=== PATIENT | female | born 1970 | race Two or more races ===

== ENCOUNTER 2020-01-17 13:44 | Outpatient (AMBR) | payer MEDICAID, SELFPAY ==
--- NOTE | 2020-01-17 14:34 | PT.OIERPT ---
PT OP Initial Eval Patient Information Visit Reasons: Left elbow pain Medical Diagnosis: Left Lateral Epicondylitis; Elbow Pain Treatment Dx #1: Left Hand Weakness Treatment Dx #2: Left Elbow Pain Start of Care: 01/17/20 Date of Onset: 6 months ago Initial Assessment Subjective Pt is a 49 y/o female c/o chronic left elbow pain (/10) started several months ago and is progressively getting worse. Pt's recent xray came back negative and no MRI yet. Pt has limitation with gripping, lifting, chores, self care, cooking, cleaning, work duties, and performing normal ADLs. Objective Left Elbow AROM: all motions are WFL Left Elbow MMTs Flexors: 3+/5 Extensors: 3+/5 Left Wrist AROM: all motions are WFL with end range pain in extension and flexion Left Wrist MMTs: grossly 3+/5 Stripper [place] Strength L: 10 lbs R: 58 lbs Palpation: TTP extensor complex tendon Special Test (+) Michel (+) Cozen's test Assessment Pt demonstrate left lateral elbow pain consistent with epicondylitis leading to weakness and decline function. 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 Handler Goals 1) Increase wrist AROM WNL in 6 wks to be able to perform self care activities 2) Increase left vice president global advertising sales strength to 50 lbs in 6 wks to be able to perform gripping activities 3) Decrease elbow pain to 2/10 in 6 wks to be able to perform chores 4) Increase wrist MMTs grossly to 4-/5 in 6 wks to be able to perform recreational activities 5) Indep with HEP Treatment Plan 1) Manual Therapy 2) Therapeutic Activities 3) Therapeutic Exercises 4) Modalities (ice, heat) Frequency and Duration 2 x wk for 6 wks Certification Dates: 01/17/20 to 04/18/20 Office Procedures PT Procedures PT Date of Service: 01/17/20 OP PT Eval Mod Complex 30 minutes: Yes
--- NOTE | 2020-01-20 10:20 | PTNOTE_ITS ---
PT Outpatient Daily Note Date of Service: 01/20/20 OP Daily Note Visit Reasons: Left elbow pain Outpatient Physical Therapy Treatment Date: 01/20/20 Subjective: Pt mention that her elbow the same. Pt was unable to use of TV remote yesterday and gripping activities still difficult Objective: Please see flow chart for list of ther ex performed Assessment: difficulty with digiflex due to pain; Pt demonstrate fatigue at the end of PT session Plan: Continue with PT Length of Time (minutes) of Treatment: 30 Minutes Office Procedures PT Procedures PT Date of Service: 01/17/20 OP PT Eval Mod Complex 30 minutes: Yes PT Procedures PT Date of Service: 01/20/20 Therapeutic Exercise 15 minutes: Yes Manual Fireboat Operator 15 minutes: Yes
--- NOTE | 2020-01-25 13:41 | PT.ODAYNRPT ---
PT Outpatient Daily Note Date of Service: 01/25/20 OP Daily Note Visit Reasons: Left elbow pain Outpatient Physical Therapy Treatment Date: 01/25/20 Subjective: Pt's wrist feels good today. Pt still has limitation with gripping activities Objective: Please see flow chart for list of ther ex performed Assessment: tolerate exercises with minimal pain; still exhibit difficulty with clips and digiflex due to extensor musculature irritation with gripping motions Plan: Continue with PT Length of Time (minutes) of Treatment: 30 Minutes Office Procedures PT Procedures PT Date of Service: 01/17/20 OP PT Eval Mod Complex 30 minutes: Yes PT Procedures PT Date of Service: 01/25/20 Therapeutic Exercise 15 minutes: Yes Manual Freight Car Cleaner 15 minutes: Yes PT Procedures PT Date of Service: 01/20/20 Therapeutic Exercise 15 minutes: Yes Manual Freight Car Cleaner 15 minutes: Yes
--- NOTE | 2020-01-27 11:10 | PTNOTE_ITS ---
PT Outpatient Daily Note Date of Service: 01/27/20 OP Daily Note Visit Reasons: Left elbow pain Outpatient Physical Therapy Treatment Date: 01/27/20 Subjective: Pt's elbow is sore but lately has been stress due to left jaw pain. Pt mention that she has a stat CT scan of her jaw and brain after therapy session. Pt still notice her right cheek still numb. Pt continues to have limitation with gripping activities due to pain Objective: Please see flow chart for list of ther ex performed Assessment: modifed exercise program today to do less resistance and exercises in general to rest sore elbow. Pt's able to perform flexbar with more force today. Plan: Continue with PT Length of Time (minutes) of Treatment: 30 Minutes Office Procedures PT Procedures PT Date of Service: 01/17/20 OP PT Rachel Hinojosa Complex 30 minutes: Yes PT Procedures PT Date of Service: 01/25/20 Therapeutic Exercise 15 minutes: Yes Manual Human Resources Manager Manufacturing 15 minutes: Yes PT Procedures PT Date of Service: 01/27/20 Therapeutic Exercise 15 minutes: Yes Manual Human Resources Manager Manufacturing 15 minutes: Yes PT Procedures PT Date of Service: 01/20/20 Therapeutic Exercise 15 minutes: Yes Manual Human Resources Manager Manufacturing 15 minutes: Yes
--- NOTE | 2020-01-30 13:23 | PT.ODAYNRPT ---
PT Outpatient Daily Note Date of Service: 01/30/2020 OP Daily Note Visit Reasons: Left elbow pain Outpatient Physical Therapy Treatment Date: 01/30/20 Subjective: pt states her elbow is sore from last visit. Objective: see flow sheet. Assessment: pt has a lot of muscle fatigue when using the 1# weight and needs to rest arm in between reps. palpated muscles tenderness during STM and she was sensitive at first then was able to relax and tolerate treatment. the thera bar exercise is good for pt although she fatigues she is able to complete the exercise after resting. she still weak as observed during strengthening exercises. Plan: continue POC per PT. Length of Time (minutes) of Treatment: 30 Minutes Office Procedures PT Procedures PT Date of Service: 01/17/20 OP PT Eval Mod Complex 30 minutes: Yes PT Procedures PT Date of Service: 01/25/20 Therapeutic Exercise 15 minutes: Yes Manual Paper Cone Drying Machine Operator 15 minutes: Yes PT Procedures PT Date of Service: 01/27/20 Therapeutic Exercise 15 minutes: Yes Manual Paper Cone Drying Machine Operator 15 minutes: Yes PT Procedures PT Date of Service: 01/30/20 Therapeutic Exercise 15 minutes: Yes Manual Paper Cone Drying Machine Operator 15 minutes: Yes PT Procedures PT Date of Service: 01/20/20 Therapeutic Exercise 15 minutes: Yes Manual Paper Cone Drying Machine Operator 15 minutes: Yes
== END 2020-01-29 23:59 | disposition home or self-care (01) ==
PROVIDERS: PCP Family Medicine; Referring Provider Family Medicine; Visit Provider Nurse Practitioner Family
DX: R53.1 Weakness (principal); M25.522 Pain in left elbow; G89.29 Other chronic pain; M77.12 Lateral epicondylitis, left elbow
CPT/HCPCS: 97110; 97140; 97162

== ENCOUNTER 2021-08-28 15:54 | Outpatient (AMBR) | payer MEDICAID, SELFPAY ==
--- NOTE | 2021-08-22 11:05 | PT.OIERPT ---
PT OP Initial Eval Patient Information Visit Reasons: left knee Medical Diagnosis: M25.562 Treatment Dx #1: Left Knee Mobility Deficits Treatment Dx #2: Left Knee Weakness Start of Care: 08/22/21 Date of Onset: 07/16/21 Initial Assessment Subjective Pt is a 51 y/o female s/p left knee lateral release and MMR 07/16/21 due to meniscal tear and OA. Pt still has knee pain (7/10) with activities. Pt has limitation with chores, self care, cooking, walking, taking care of her grandchildren, standing, squatting, stairs, and performing recreational activities. Objective Left Knee AROM: - 9 deg to 115 deg Left Knee MMTs Quads: 3-/5 Hs: 3-/5 Left Hip MMTs Glute Med: 3/5 Glute Max: 3/5 Knee Cap Mobility: decrease in all plane SLS: unable Muscle Length: decrease Hs length Assessment Pt demonstrate left knee mobility and strength deficits s/p knee surgery leading to decline function. Pt will benefit from physical therapy to increase strength, ROM, and work on knee stability. Short Term and Penitentiary Goals 1) Increase left knee AROM WFL in 8 wks to be able to perform squatting activities 2) Increase left knee MMTs grossly to 4/5 in 8 wks to be able to perform recreational activities 3) Increase left hip MMTs grossly to 4-/5 in 8 wks to be able to perform ambulation more than 2 hr 4) Decrease knee pain to 2/10 in 8 wks to be able to take care of her grandchildren 5) Increase SLS to 15 sec in 8 wks to be able to perform self care activities 6) Indep with HEP Treatment Plan 1) Manual Therapy 2) Therapeutic Activities 3) Therapeutic Exercises 4) Modalities (ice, heat) 5) Balance Training 6) Gait Training Frequency and Duration 2 x wk for 6 wks Certification Dates: 08/22/21 to 11/20/21 Office Procedures PT Treatments PT Date of Service: 08/22/21 OP PT Eval Mod Complex 30 minutes: Yes
--- NOTE | 2021-08-26 15:52 | PT.ODAYNRPT ---
PT Outpatient Daily Note Date of Service: 08/26/21 OP Daily Note Visit Reasons: left knee Outpatient Physical Therapy Treatment Date: 08/26/21 Subjective: Pt mention that her knee still hurts and pop. Pt can move her knee with less pain lately. Objective: Please see flow chart for list of ther ex performed Assessment: tolerate exercises with minimal pain Plan: Continue with PT Length of Time (minutes) of Treatment: 30 Minutes Office Procedures PT Treatments PT Date of Service: 08/22/21 OP PT Eval Mod Complex 30 minutes: Yes PT Treatments PT Date of Service: 08/26/21 Therapeutic Exercise 30 minutes: Yes
--- NOTE | 2021-08-28 16:14 | PT.ODAYNRPT ---
PT Outpatient Daily Note Date of Service: 08/28/21 OP Daily Note Visit Reasons: left knee Outpatient Physical Therapy Treatment Date: 08/28/21 Subjective: Pt mention that her knee still hurts but the movement is getting much better. Pt continues to perform her exercises daily. Objective: Please see flow chart for list of ther ex performed Assessment: worked on gait training today and patient was able to demonstrate proper gait with decrease left knee bent during stance. Pt's Hs is very tight due to knee position during ambulation. improved Hs length was noted after passsive stretching Plan: Continue with PT Length of Time (minutes) of Treatment: 30 Minutes Office Procedures PT Treatments PT Date of Service: 08/22/21 OP PT Eval Mod Complex 30 minutes: Yes PT Treatments PT Date of Service: 08/26/21 Therapeutic Exercise 30 minutes: Yes PT Treatments PT Date of Service: 08/28/21 Therapeutic Exercise 30 minutes: Yes
== END 2021-08-30 23:59 | disposition home or self-care (01) ==
PROVIDERS: PCP Orthopaedic Surgery; Referring Provider Orthopaedic Surgery; Visit Provider Orthopaedic Surgery
DX: Z98.890 Other specified postprocedural states (principal); M25.562 Pain in left knee; R53.1 Weakness; R26.2 Difficulty in walking, not elsewhere classified
CPT/HCPCS: 97110; 97162

== ENCOUNTER 2024-07-27 10:47 | Outpatient (RCR) | payer MEDICAID, SELFPAY ==
--- NOTE | 2024-07-27 11:19 | PT.OIERPT ---
PT OP Initial Eval Patient Information Outpatient Physical Therapy Treatment Date: 07/27/24 Visit Reasons: left shoulder surgery Medical Diagnosis: M75.22; [id number] Treatment Dx #1: Left Shoulder Mobility Deficits Treatment Dx #2: Left Shoulder Pain Start of Care: 07/27/24 Date of Onset: 07/22/24 Smoking Status Smoking Status: Never smoker Initial Assessment Subjective: Pt is a 54 y/o female s/p left shoulder bicep tenodesis and labrum debridement 07/22/24. Pt still has a lot of pain (8/10) with all activities. Pt has limitation with lifting, chores, self care, cooking, cleaning, and performing recreational activities. Objective: Left Shoulder PROM Flexion: 90 deg Abduction: 50 deg ER and IR: unable Left Shoulder AROM Flexion: 45 deg Abduction: 20 deg ER and IR: unable Left Shoulder MMTs grossly 2-/5 Left Scapula MMTs: grossly 2-/5 Assessment: Pt demonstrate left shoulder mobility and strength deficits s/p shoulder surgery leading to difficulty with ADLs. Pt will benefit from physical therapy to increase ROM, strength, and work on stability. Short Term and Electrical Tech/Project Manager Goals 1) Increase left shoulder PROM WNL in 12 wks to prevent frozen shoulder 2) Increase left shoulder AROM WFL in 12 wks to be able to perform overhead motions 3) Increase left shoulder MMTs grossly to 4-/5 in 12 wks to be able to perform recreational activities 4) Increase left scapula MMTs grossly to 3+/5 in 12 wks to be able to perform self care activities 5) Indep with HEP Treatment Plan 1) Manual Therapy 2) Therapeutic Activities 3) Therapeutic Exercises 4) Modalities (ice, heat) Frequency and Duration: 2 x wk for 12 wks Certification Dates: 07/27/24 to 10/27/24 Procedure Charges OP PT Eval Mod Complex 30 minutes: Yes
== END 2024-07-30 23:59 | disposition home or self-care (01) ==
LOC: CPTX 10:47
PROVIDERS: PCP Orthopaedic Surgery; Referring Provider Orthopaedic Surgery; Visit Provider Orthopaedic Surgery
DX: M25.512 Pain in left shoulder (principal); M75.22 Bicipital tendinitis, left shoulder; S43.432D Superior glenoid labrum lesion of left shoulder, subsequent encounter; X58.XXXD Exposure to other specified factors, subsequent encounter
CPT/HCPCS: 97162

== ENCOUNTER 2024-08-23 16:00 | Emergency (ER) | payer MEDICAID, SELFPAY ==
[2024-08-23 16:09] VITALS: BP 115/77; PULSE 98; RESP 18; TEMP 36.6; O2SAT 98; BMI 24.4
--- NOTE | 2024-08-23 16:14 | XR_ITS ---
Examination: CT cervical spine without contrast 2-D sagittal reconstructions 2-D coronal reconstructions 3-D reconstructions. Exam date and time:August 23, 2024 1743 hrs. Indications: Patient fell today with injury to the neck, neck pain CTDI:vol (mGy) 12.7 DLP: (mGycm) 306 Technique: Multiple 2 mm axial sections of the cervical spine have been obtained. The coronal and sagittal reconstructions have been obtained. 3-D reconstructions have been obtained. Low dose protocols were performed. One or more of the following dose reduction techniques were used; automated exposure control, adjustment of the mA and/or KV according to patient size, use of iterative reconstruction technique. Findings: Axial sections demonstrate intact base of the skull. C1 exhibit satisfactory relationship to the odontoid. No acute cervical vertebral body fracture seen. Alignment posterior spinous processes satisfactory. Impression: No acute cervical fracture.
--- NOTE | 2024-08-23 16:14 | XR_ITS ---
Examination: Tibia-Fibula, left , 2 views Technique: Tibia-fibula AP lateral 2 views Date and time of exam: August 23, 2024 1629 hrs. Indications: Patient fell today with injury to lower leg, lower leg pain. Findings: No acute fracture No dislocation Impression: No acute fracture
--- NOTE | 2024-08-23 16:14 | XR_ITS ---
Examination: CT brain head without contrast. 2-D sagittal coronal reconstructions Date and time of exam:August 23, 2024 1743 hrs. CTDI: vol (mGy):50.1 DLP: (mGycm):948 Technique: Multiple CT axial sections of the brain have been obtained, 5 mm slice thickness. Contrast has not been administered. 2-D sagittal, coronal reconstructions have been obtained Low dose protocols were performed. One or more of the following dose reduction techniques were used; automated exposure control, adjustment of the mA and/or KV according to patient size, use of iterative reconstruction technique. Findings: No significant ventricular enlargement. Soft tissue swelling left forehead Intra-axial or extra-axial hemorrhage density is not seen. No mass effect or midline shift Basal cisterns are not remarkable. Fourth ventricle is midline. Cranial vault intact. Impression: Negative for acute hemorrhage, mass effect or midline shift
--- NOTE | 2024-08-23 16:14 | XR_ITS ---
Examination: CT maxillofacial, without intravenous contrast. 2-D sagittal reconstructions. 3-D reconstructions. Date and time of exam:August 23, 2024 1743 hrs. Indications: Patient fell today with injury to the face, facial pain CTDI: vol (mGy):14.2 DLP: (mGycm):246 Technique: Multiple axial images of maxillofacial region, 3.0 mm slice thickness. 2-D sagittal and coronal reconstructions. 3-D reconstructions. Low dose protocols were performed. One or more of the following dose reduction techniques were used; automated exposure control, adjustment of the mA and/or KV according to patient size, use of iterative reconstruction technique. Findings: Frontal bone frontal sinuses intact Orbital rims intact No nasal bone fracture No depression zygomatic arches Pterygoid plates maxilla and the mandible intact Impression: No acute facial fracture.
--- NOTE | 2024-08-23 16:14 | XR_ITS ---
Examination: Shoulder,left, 3 views Technique: Shoulder AP internal rotation, AP external rotation, Y view shoulder, 3 views Exam date and time :August 23, 2024 1629 hrs. Indications: Patient fell today with injury to the shoulder, shoulder pain Findings: No shoulder fracture or dislocation Mild calcific tendinitis Impression: No shoulder fracture or dislocation
--- NOTE | 2024-08-23 16:15 | PD.EDRME ---
Rapid Medical Screening Exam RME Arrival date/time: 08/23/24 16:00 54-year-old female presents emergency department today stating she had a fall today patient reports that she had a recent surgery on her left shoulder 1 month ago patient reports that she was unable to fall with an outstretched arm and instead fell on her face patient reports facial pain, headache, neck pain, leg pain and shoulder pain Chief Complaint: Fall Vital signs: Vital Signs Temperature 98 F 08/23/24 16:09 Pulse Rate 98 08/23/24 16:09 Respiratory Rate 18 08/23/24 16:09 Blood Pressure 115/77 08/23/24 16:09 Pulse Oximetry (%) 98 08/23/24 16:09 Oxygen Delivery Method Room Air 08/23/24 16:09
[2024-08-23] MEDS: traMADol HCL 50 MG TABLET PO (16:22)
--- NOTE | 2024-08-23 16:45 | PC.NURSE ---
PT HERE WITH C/O TRIPPING OVER THE OVEN DOOR SHE LEFT OPEN. STATES LANDED ON FACE AND I'M NOT SURE IF I PASSED OUT. C/O PAIN TO FACE , NECK, AND BILATERAL SHINS. PT WITH SLING IN PLACE TO LEFT ARM DUE TO SHOULDER SURGERY 4 WEEKS AGO
--- NOTE | 2024-08-23 17:00 | EDNOTE_ITS ---
ED General RME/HPI General Chief complaint: Fall Stated complaint: TRIP/FALL, PAIN EVERYWHERE Time Seen by Provider: 08/23/24 16:51 Arrival date/time: 08/23/24 16:00 CC: Facial pain neck pain HPI patient fell after tripping on an open oven door. The patient has mildly altered balance secondary to a 4-week old surgery to the left shoulder for tendon repair Patient thinks that she had loss of consciousness. The patient states she left the oven door open forgot about it went about her business and wind up tripping over the oven door. RME / HPI RME / HPI narrative: 08/23/24 16:00 54-year-old female presents emergency department today stating she had a fall today patient reports that she had a recent surgery on her left shoulder 1 month ago patient reports that she was unable to fall with an outstretched arm and instead fell on her face patient reports facial pain, headache, neck pain, leg pain and shoulder pain Related Data Previous Rx's ?Medication ?Instructions ?Recorded acetaminophen 650 mg 650 mg PO Q8H PRN fever or pain 11/13/18 tablet,extended release #30 tabs cyclobenzaprine 10 mg tablet 10 mg PO Q8H PRN muscle spasm / 11/13/18 pain #14 tabs meloxicam 15 mg tablet (Mobic) 15 mg PO QDAY #10 tabs 11/13/18 dicyclomine 20 mg tablet 20 mg PO BID #14 tabs 04/01/22 meloxicam 7.5 mg tablet 7.5 mg PO QDAY #14 tabs 04/01/22 nitrofurantoin 100 mg PO BID #14 caps 04/01/22 monohydrate/macrocrystals 100 mg capsule (Macrobid) diphenhydramine HCl 25 mg capsule 25 mg PO TID PRN allergic reaction 06/04/24 (Allergy (diphenhydramine)) #10 caps prednisone 50 mg tablet 50 mg PO QDAY #3 tabs 06/04/24 ondansetron 4 mg disintegrating 4 mg PO Q8H #10 tabs 08/23/24 tablet Allergies Allergy/AdvReac Type Severity Reaction Status Date / Time ciprofloxacin Allergy Severe Nausea/Vomi Verified 08/23/24 16:01 tiing codeine Allergy Severe SEVERE Verified 08/23/24 16:01 HEADACHE Review of Systems Review of Systems Narrative Review of Systems: GEN: No fever, no chills, no weight loss EYES: No discharge, no visual changes, no pain HEENT: No ear pain, no congestion, no sore throat, +neck pain PULM: No shortness of breath, no cough, no congestion CV: No chest pain, no dyspnea on exertion, no palpitations GI: No nausea, no vomiting, no diarrhea, no pain, no constipation : No frequency, no urgency, no dysuria MUSC/SKEL: + joint pain, no back pain SKIN: No rash PSYCH: No hallucinations, no depression HEME/LYMPH: No easy bleeding or bruising tendencies NEURO: No weakness, no headache Past Medical History Past Medical History NEUROLOGIC: Positive Neurological Disorders and Migraine; Negative Seizures CARDIAC: Positive Cardiac Disorders, Cardiac Arrhythmia and Hypercholesterolemia; Negative Congestive Heart Failure RESPIRATORY: Negative Chronic Obstructive Pulmonary Disease (COPD) or Asthma GASTROINTESTINAL: Negative Gastrointestinal Disorders or Hepatitis GENITOURINARY: Negative Genitourinary Disorders or Renal Disease REPRODUCTIVE: Positive Previous Pregnancies; Negative Pelvic Inflammatory Disease MUSCULOSKELETAL: Positive Musculoskeletal Disorders, Arthritis, Rheumatoid Arthritis, Osteoporosis and Fibromyalgia ENDOCRINE: Negative Endocrine Disorders, Diabetes Mellitus Type 1 or Diabetes Mellitus Type 2 HEMATOLOGIC: Negative Blood Disorders or Sickle Cell Disease PSYCHO/SOCIAL: Positive Depression OTHER HISTORY: Negative Blood Transfusions, Blood Transfusion Reaction, Anesthesia Reactions, MRSA, VRSA, Vancomycin-Resistant Enterococci, Clostridium Difficile or Cancer Family History FAMILY HISTORY: Positive Family Cardiac Disorders and Family Cancer Surgical History SURGICAL: Positive of Shoulder Sx (LEFT) and Hysterectomy Social History SMOKING STATUS: Never smoker ED Exam Narrative Physical exam: [General: In mild discomfort but not in any acute distress Head normocephalic no step-offs hematomas induration ulceration crepitus no depressions. HEENT: Center forehead the patient has a mild hematoma, there is tender to palpation. Nose has a minor abrasion with a minor hematoma to the bridge of the nose. Mouth: [place] moist membranes uvula is midline symmetric swallow symmetrical phonation is normal no step-offs in the upper or lower mandibles no pops or clicks with palpation of the TMJ with mastication. Nose no rhinorrhea no otorrhea. Ears EACs clear TMs visible no bleeding. No raccoon's eyes or Angela sign. Neck is supple mild the cervical paraspinal tenderness on palpation. Chest equal chest rise nontender to palpation Respiratory: Clear to auscultation no wheezes crackles or rubs CV: Rate rhythm is regular no murmurs rubs or clicks Abdomen is soft nontender no masses positive bowel sounds all 4 quadrants Back: No CVA tenderness no spinous process tenderness from cervical spine thoracic and lumbar spine Skin: Minor abrasions listed above otherwise skin is intact no petechiae rash induration ulceration or crepitus Extremities: Decreased range of motion of the left arm secondary to pain in the left shoulder status post surgery. Cap refill in the left upper extremity less than 2 seconds neurosensory intact. Full range of motion of the wrist elbow and digits. Moving all other extremities against resistance cap refill less than 2 seconds neurosensory intact Neuro: Awake alert oriented x3 Glascow coma 15 no focal deficits] Course Quality Measures none Orders Category Date Time Status CT cervical spine wo con Stat Exams 08/23/24 16:[address] facial bones wo con Stat Exams 08/23/24 16:[address] head/brain wo con Stat Exams 08/23/24 16:14 Completed XR shoulder LT min 2V Stat Exams 08/23/24 16:14 Completed XR tibia fibula LT 2V Stat Exams 08/23/24 16:14 Completed traMADol HCL [Ultram] Med 08/23/24 16:17 Discontinued 50 mg PO X1 ONE Vital Signs Vital signs: Vital Signs Temperature 98 F 08/23/24 16:09 Pulse Rate 98 08/23/24 16:09 Respiratory Rate 18 08/23/24 16:09 Blood Pressure 115/77 08/23/24 16:09 Pulse Oximetry (%) 98 08/23/24 16:09 Oxygen Delivery Method Room Air 08/23/24 16:09 [facility] Patient data External records reviewed:: [facility] previous records Clinical information provided by:: patient Social determinants that could affect healthcare access:: none Patient has the following chronic illnesses:: None How is presenting disease/condition affected by chronic disease/condition?: uneffected by Evaluation data The following diagnostics were reviewed and interpreted by me:: radiology exam(s) Lab and/or radiology exams considered but not ordered:: CT head C-spine and face are negative for any acute fracture malalignment or dislocation as interpreted by me read by radiology left shoulder x-rays inter by me read by radiology as negative for any acute fracture or malalignment Tib-fib x-ray is inter by me read by radiology as negative Interpretation Summary: Patient has had no deterioration neurologic status throughout her visit, reassessment of the patient at 1830 show the patient still continues have mild face pain. Patient was offered pain medicine declined saying she has pain medicines at home we will discharge the patient home with antinausea medicine. Patient is to follow-up with her orthopedic surgeon who did the work on her shoulder for reevaluation and possible consideration of another MRI. Medications Medications considered but not ordered:: None Medication administrations:: Medication Administration History Discontinued Medications Tramadol HCl (Tramadol Hcl 50 Mg Tablet) 50 mg PO X1 ONE Stop: 08/23/24 16:18 Last Admin: 08/23/24 16:22 Dose: 50 mg Documented By: None Consultations Consultation(s) initiated? (list below): No Diagnosis Differential Diagnosis ED Complaint MDM: Closed head injury neck fracture facial fracture Most likely diagnosis given after review of the tests above:: Fall forehead contusion face contusion Admission Indicated Admission indicated?: not indicated Explain why admission is indicated or not indicated:: Stable for outpatient follow-up Admission Request Was there a request for admission?: No Disposition Plan Disposition Plan: Discharge Discharge Attestation Discharge Attestation: The patient and all family members were given an opportunity to ask questions and understood the discharge instructions. Discharge instructions specifically effects, indications for sooner follow up or return to the emergency department, and the expected course of current diagnosis. Patient condition: Stable Medical Decision Making Differential Diagnosis Differential Diagnosis: Closed head injury neck fracture facial fracture Discharge Plan Plan Patient Disposition: HOME (Self Care) Patient condition on transfer: Stable Prescriptions/Referrals Prescriptions/Med Rec: New ondansetron 4 mg tablet,disintegrating 4 mg PO Q8H Qty: 10 0RF No Action acetaminophen 650 mg tablet extended release 650 mg PO Q8H PRN (Reason: fever or pain) Qty: 30 0RF Rx Instructions: swallow whole; do not crush, chew, break, dissolve, cut, or open cyclobenzaprine 10 mg tablet 10 mg PO Q8H PRN (Reason: muscle spasm / pain) Qty: 14 0RF meloxicam [Mobic] 15 mg tablet 15 mg PO QDAY Qty: 10 0RF dicyclomine 20 mg tablet 20 mg PO BID Qty: 14 0RF nitrofurantoin monohyd/m-cryst [Macrobid] 100 mg capsule 100 mg PO BID Qty: 14 0RF Rx Instructions: must administer with a meal/food meloxicam 7.5 mg tablet 7.5 mg PO QDAY Qty: 14 0RF prednisone 50 mg tablet 50 mg PO QDAY Qty: 3 0RF diphenhydramine HCl [Allergy (diphenhydramine)] 25 mg capsule 25 mg PO TID PRN (Reason: allergic reaction) Qty: 10 0RF Referrals: Nilam Balderrama FNP [Primary Care Provider] - In 1 week Problem List Clinical Impression: Contusion of face, Contusion of left shoulder Patient/Caregiver Discharge Instructions Education Materials: ED CONTUSION Face [w/ Wake Up], ED Shoulder Contusion Print Language: Tuvaluan Stand Alone Forms: Liz Award Info., Patient Portal Info Letter, Work/School Release PA/WEB DEVELOPER Supervising Physician PA/WEB DEVELOPER Supervising Physician: Smith Gupta ENP
[2024-08-23 18:00] VITALS: BP 117/71; PULSE 76; RESP 16; O2SAT 97
[2024-08-23 18:46] VITALS: TEMP 36.4
== END 2024-08-23 18:45 | disposition home or self-care (01) ==
PROVIDERS: Emergency Provider Emergency Medicine; PCP Registered Nurse Community Health
DX: S00.83XA Contusion of other part of head, initial encounter (principal); S00.31XA Abrasion of nose, initial encounter; S00.33XA Contusion of nose, initial encounter; S40.012A Contusion of left shoulder, initial encounter; S19.9XXA Unspecified injury of neck, initial encounter; S89.92XA Unspecified injury of left lower leg, initial encounter; W01.0XXA Fall on same level from slipping, tripping and stumbling without subsequent striking against object, initial encounter
CPT/HCPCS: 70450; 70486; 72125; 73030; 73590; 99284; A9270

== ENCOUNTER 2024-08-30 14:30 | Outpatient (RCR) | payer MEDICAID, SELFPAY ==
--- NOTE | 2024-08-02 14:56 | PT.ODAYNRPT ---
PT Outpatient Daily Note OP Daily Note Outpatient Physical Therapy Treatment Date: 08/02/24 Visit Reasons: Left shoulder surgery Subjective: Pt's shoulder feels better. Pt has been able to do bigger pendulums at home with less pain. Objective: Please see flow chart for list of ther ex performed Assessment: attempted isometric exercises but unable due to pain. Exercise was stopped and will re-attempt when patient can tolerate. Pt cue to decrease guarding with PROM to increase ROM. Post ice helped with pain Plan: Continue with PT Length of Time (minutes) of Treatment: 30 Minutes Procedure Charges Therapeutic Exercise 30 minutes: Yes
--- NOTE | 2024-08-05 14:28 | PT.ODAYNRPT ---
PT Outpatient Daily Note OP Daily Note Outpatient Physical Therapy Treatment Date: 08/05/24 Visit Reasons: Left shoulder surgery Subjective: Pt's shoulder feels better and notice she can move a little more. Pt has been using ice which help with pain and soreness. Objective: Please see flow chart for list of ther ex performed Assessment: progressing with shoulder PROM in all plane. Post ice helped with pain and soreness Plan: Continue with PT Length of Time (minutes) of Treatment: 30 Minutes Procedure Charges Therapeutic Exercise 30 minutes: Yes
--- NOTE | 2024-08-09 13:39 | PT.ODAYNRPT ---
PT Outpatient Daily Note OP Daily Note Outpatient Physical Therapy Treatment Date: 08/09/24 Visit Reasons: Left shoulder surgery Subjective: Pt's shoulder is feeling better each week. Pt has a follow up appt with surgeon today. Objective: Left Shoulder PROM Flexion: 120 deg ABduction: 100 deg Assessment: Pt progressing with shoulder PROM less cues today to relax with PROM exercises. Post ice helped with pain and soreness Plan: Continue with PT Length of Time (minutes) of Treatment: 30 Minutes Procedure Charges Therapeutic Exercise 30 minutes: Yes
--- NOTE | 2024-08-12 15:36 | PT.ODAYNRPT ---
PT Outpatient Daily Note OP Daily Note Outpatient Physical Therapy Treatment Date: 08/12/24 Visit Reasons: Left shoulder surgery Subjective: Pt's shoulder feels better. Pt seen surgeon and wants her to take it easy with minimal lifting at home or in PT for a few more weeks. Objective: Please see flow chart for list of ther ex performed Assessment: continues to progress with shoulder flexion AAROM with alejandra and finger ladder with less pain reported. Plan: Continue with PT Length of Time (minutes) of Treatment: 30 Minutes Procedure Charges Therapeutic Exercise 30 minutes: Yes
--- NOTE | 2024-08-15 14:30 | PT.ODAYNRPT ---
PT Outpatient Daily Note OP Daily Note Outpatient Physical Therapy Treatment Date: 08/15/24 Visit Reasons: Left shoulder surgery Subjective: Pt's shoulder feels better. Pt notice some soreness lately. Objective: Please see flow chart for list of ther ex performed Assessment: progressing with shoulder flexion and scaption AAROM with less pain reported Plan: Continue with PT Length of Time (minutes) of Treatment: 30 Minutes Procedure Charges Therapeutic Exercise 30 minutes: Yes
--- NOTE | 2024-08-22 14:48 | PT.ODAYNRPT ---
PT Outpatient Daily Note OP Daily Note Outpatient Physical Therapy Treatment Date: 08/22/24 Visit Reasons: Left shoulder surgery Subjective: Pt's shoulder is okay and feel stiff today. Pt mention her whole body feels inflamed causing her shoulder to hurt more Objective: Please see flow chart for list of ther ex performed Assessment: backed off isometric exercises due to increase pain prior to therapy session. Pt performed all AAROM with tolerable pain Plan: Continue with PT Length of Time (minutes) of Treatment: 30 Minutes Procedure Charges Therapeutic Exercise 30 minutes: Yes
--- NOTE | 2024-08-30 15:26 | PTNOTE_ITS ---
PT Outpatient Daily Note OP Daily Note Outpatient Physical Therapy Treatment Date: 08/30/24 Visit Reasons: Left shoulder surgery Assessment: Pt came into therapy session, however, not treated. Pt reported she fell 08/23/25 and hurt the left shoulder. Pt mentioned she recently seen her surgeon and she needs immediate surgery to reconnect the bicep tendon, however, unable to perform surgery at the [facility] due to clinic not accepting patient's current insurance. Pt has a pending appt with her PCP and will like to be refer to a specialist ASHLEY. Pt's treatment is on hold until further notice/clearance from surgeon.
== END 2024-08-30 23:59 | disposition home or self-care (01) ==
LOC: CPTX 14:30
PROVIDERS: PCP Orthopaedic Surgery; Referring Provider Orthopaedic Surgery; Visit Provider Orthopaedic Surgery
DX: M25.512 Pain in left shoulder (principal); M75.22 Bicipital tendinitis, left shoulder; S43.432D Superior glenoid labrum lesion of left shoulder, subsequent encounter; X58.XXXD Exposure to other specified factors, subsequent encounter
CPT/HCPCS: 97110

== ENCOUNTER 2024-09-29 11:00 | Outpatient (RCR) | payer MEDICAID, SELFPAY ==
--- NOTE | 2024-09-20 14:59 | PT.ODAYNRPT ---
PT Outpatient Daily Note OP Daily Note Outpatient Physical Therapy Treatment Date: 09/20/24 Visit Reasons: LEFT SHOULDER PAIN Subjective: Pt reports L shoulder is stiff and painful. Pt had a fall on August 23 2024 she had a head contusion and tore her bicep. As of now there is no plan for surgery on L bicep, surgeon recommended pt continue with PT for shoulder to prevent frozen shoulder. Objective: Please see flow sheet for ther ex list. Assessment: Pt performed light AAROM, performed PROM to L shoulder within pt tolerance. Plan: Continue with POC. Length of Time (minutes) of Treatment: 30 Minutes Procedure Charges Therapeutic Exercise 30 minutes: Yes
--- NOTE | 2024-09-22 14:21 | PT.ODAYNRPT ---
PT Outpatient Daily Note OP Daily Note Outpatient Physical Therapy Treatment Date: 09/22/24 Visit Reasons: LEFT SHOULDER PAIN Subjective: Pt's shoulder is worse since the fall. Pt mentioned her pain is daily and now has difficulty with self care activities Objective: Please see flow chart for list of ther ex performed Assessment: difficulty tolerating shoulder PROM due to pain. Pt encouraged to start light AAROM at home to to help tolerate future stretches in therapy. Pt gave verbal consent Plan: Continue with PT Length of Time (minutes) of Treatment: 30 Minutes Procedure Charges Therapeutic Exercise 30 minutes: Yes
--- NOTE | 2024-09-29 12:53 | PT.ODAYNRPT ---
PT Outpatient Daily Note OP Daily Note Outpatient Physical Therapy Treatment Date: 09/29/24 Visit Reasons: LEFT SHOULDER PAIN Subjective: Pt shoulder ache more lately. Pt has been taking more anti-inflammatory meds lately. Objective: Please see flow chart for list of ther ex performed Assessment: slow progress with shoulder ER AAROM due to pain. However patient able to complete instructed reps Plan: Continue with PT Length of Time (minutes) of Treatment: 30 Minutes Procedure Charges Therapeutic Exercise 30 minutes: Yes
== END 2024-09-30 23:59 | disposition home or self-care (01) ==
LOC: CPTX 11:00
PROVIDERS: PCP Orthopaedic Surgery; Referring Provider Orthopaedic Surgery; Visit Provider Orthopaedic Surgery
DX: M25.512 Pain in left shoulder (principal); M75.22 Bicipital tendinitis, left shoulder; S43.432D Superior glenoid labrum lesion of left shoulder, subsequent encounter; X58.XXXD Exposure to other specified factors, subsequent encounter
CPT/HCPCS: 97110

== ENCOUNTER 2024-10-27 10:30 | Outpatient (RCR) | payer MEDICAID, SELFPAY ==
--- NOTE | 2024-10-04 11:41 | PT.ODAYNRPT ---
PT Outpatient Daily Note OP Daily Note Outpatient Physical Therapy Treatment Date: 10/04/24 Visit Reasons: Left shoulder pain Subjective: Pt notice minimal improvement and continues to have limitation with moving her arms overhead Objective: Please see flow chart for list of ther ex performed Assessment: difficulty tolerating shoulder ER stretch due to pain, however, able to complete instructed reps. Pt demonstrate slow progress with shoulder ROM due to pain Plan: Continue with PT Length of Time (minutes) of Treatment: 30 Minutes Procedure Charges Therapeutic Exercise 30 minutes: Yes
--- NOTE | 2024-10-06 11:28 | PT.ODAYNRPT ---
PT Outpatient Daily Note OP Daily Note Outpatient Physical Therapy Treatment Date: 10/06/24 Visit Reasons: Left shoulder pain Subjective: Pt's shoulder feels stuck. Pt mentioned she has a follow up appt with surgeon 11/03/23. No change in pain lately and shoulder continues to hurt. Objective: Please see flow chart for list of ther ex performed Assessment: slow progress with shoulder ROM due to pain. Minimal changes with shoulder ER due to poor tolerance to passive stretching Plan: Continue with PT Length of Time (minutes) of Treatment: 30 Minutes Procedure Charges Therapeutic Exercise 30 minutes: Yes
--- NOTE | 2024-10-11 12:02 | PT.ODS1RPT ---
PT OP Progress/Discharge Note Date of Service: 10/11/24 Progress Note/DC Note Progress Note/Discharge Note: Progress Note Patient Information Visit Reasons: Left shoulder pain Medical Diagnosis: M75.22; S43.432d Treatment Dx #1: Left Shoulder Pain Treatment Dx #2: Left Shoulder Mobility Deficits Service Continue Service or Discharge: Continue Service Certification Date Certification Dates: 10/11/24 to 01/08/25 Status Subjective: Pt mentioned her arm is feeling more numb and stiff since her fall a few weeks ago. Pt seen surgeon and clear to resume physical therapy but feels that something else is wrong in the shoulder since the fall. Pt continues to have limitation with self care, cooking, cleaning, chores, overhead motions, and performing recreational activities. Pt does not follow up with surgeon until the beginning of october. Objective: Left Shoulder AROM Flexion: 60 deg Abduction: 50 deg External Rotation: 45 deg Internal Rotation: 20 deg Left Shoulder MMTs: grossly 3-/5 Left Scapula MMTs: grossly 3-/5 Assessment: Pt demonstrate slow improvement with shoulder AROM and strength since her fall. Pt exhibit frozen shoulder leading to difficulty with progression with stretches and exercises in therapy. Furthermore Pt has been reporting more numbness in her arm post fall leading to inability to perform overhead motions for long. Pt encouraged to continue physical therapy until she sees surgeon for a consultation; thank you for your referrals. Plan: Continue with PT/POC and add 12 sessions (2 x wk for 6 wks) Procedure Charges Therapeutic Exercise 30 minutes: Yes
--- NOTE | 2024-10-13 13:39 | PT.ODAYNRPT ---
PT Outpatient Daily Note OP Daily Note Outpatient Physical Therapy Treatment Date: 10/13/24 Visit Reasons: Left shoulder pain Subjective: Pt reports shoulder continues to be painful and stiff. Objective: Please see flow sheet for ther ex list. Assessment: AAROM completed with pain, pt instructed to perform within tolerable ROM. Plan: Continue with POC. Length of Time (minutes) of Treatment: 30 Minutes Procedure Charges Therapeutic Exercise 30 minutes: Yes
--- NOTE | 2024-10-18 14:58 | PT.ODAYNRPT ---
PT Outpatient Daily Note OP Daily Note Outpatient Physical Therapy Treatment Date: 10/18/24 Visit Reasons: Left shoulder pain Subjective: Pt's shoulder is about the same. Pt continues to have numbness and weakness minimal changes lately. Objective: Please see flow chart for list of ther ex performed Assessment: minimal progress with shoulder ER AROM and PROM due to pain and post capsule restriction. Plan: Continue with PT Length of Time (minutes) of Treatment: 30 Minutes Procedure Charges Therapeutic Exercise 30 minutes: Yes
--- NOTE | 2024-10-20 14:33 | PT.ODAYNRPT ---
PT Outpatient Daily Note OP Daily Note Outpatient Physical Therapy Treatment Date: 10/20/24 Visit Reasons: Left shoulder pain Subjective: Pt notice she is having better days and arm is moving higher Objective: Please see flow chart for list of ther ex performed Assessment: less guarded with shoulder ER stretch today. Pt is progressing with shoulder AAROM flexion, ER, scaption Plan: Continue with PT Length of Time (minutes) of Treatment: 30 Minutes Procedure Charges Therapeutic Exercise 30 minutes: Yes
--- NOTE | 2024-10-25 13:12 | PT.ODAYNRPT ---
PT Outpatient Daily Note OP Daily Note Outpatient Physical Therapy Treatment Date: 10/25/24 Visit Reasons: Left shoulder pain Subjective: Pt repots continued pain from bicep to elbow and notices her hand swells up at times. Objective: Please see flow sheet for ther ex list. Assessment: Interventions progressed as tolerated, pt continues to have moderate L UE pain. Plan: Continue with pOC. Length of Time (minutes) of Treatment: 30 Minutes Procedure Charges Therapeutic Exercise 30 minutes: Yes
--- NOTE | 2024-10-27 11:13 | PT.ODAYNRPT ---
PT Outpatient Daily Note OP Daily Note Outpatient Physical Therapy Treatment Date: 10/27/24 Visit Reasons: Left shoulder pain Subjective: Pt reports she continues to have pain on her L shoulder and pain on her L elbow that radiates through the whole arm. Objective: Please see flow sheet for ther ex list. Assessment: Pt continues to report pain with activity and AAROM interventions delaying progress. Plan: Continue with pOC. Length of Time (minutes) of Treatment: 30 Minutes Procedure Charges Therapeutic Exercise 30 minutes: Yes
== END 2024-10-28 23:59 | disposition home or self-care (01) ==
LOC: CPTX 10:30
PROVIDERS: PCP Orthopaedic Surgery; Referring Provider Orthopaedic Surgery; Visit Provider Orthopaedic Surgery
DX: M25.512 Pain in left shoulder (principal); M75.22 Bicipital tendinitis, left shoulder; S43.432D Superior glenoid labrum lesion of left shoulder, subsequent encounter; X58.XXXD Exposure to other specified factors, subsequent encounter
CPT/HCPCS: 97110

== ENCOUNTER 2024-11-25 11:46 | Emergency (ER) | payer MEDICAID, SELFPAY ==
[2024-11-25 12:29] VITALS: BP 112/74; PULSE 128; RESP 16; TEMP 37.2; O2SAT 95; BMI 24.4
--- NOTE | 2024-11-25 12:39 | EKG_ITS ---
[facility] Test Date: 2024-11-25 Pat Name: ELISABETH CAZARES Department: Room: - Gender: Female Mark Up Designer: : 1970 Requested By: Naya Sequeira Order Number: [id number] Reading MD: Naya Sequeira Measurements Intervals [place] Rate: 110 P: 63 [place]: 153 QRS: 34 QRSD: 83 T: 42 QT: 333 QTc: 451 Interpretive Statements SINUS TACHYCARDIA POSSIBLE LEFT ATRIAL ENLARGEMENT [-0.1mV P-WAVE IN V1/V2] POSSIBLE RIGHT VENTRICULAR CONDUCTION DELAY [RSR (QR) IN V1/V2] NONSPECIFIC T-WAVE ABNORMALITY ABNORMAL RHYTHM ECG Compared to ECG 06/04/2024 00:30:14 T-wave abnormality now present Sinus rhythm no longer present /store/S0/[id number].pdf
--- NOTE | 2024-11-25 12:39 | XR_ITS ---
Examination: Abdomen sonogram, Limited Date and time of exam: November 25, 2024 1252 hours INDICATIONS: Epigastric pain and vomiting beginning 2 hours ago Technique: Real-time limon scale transabdominal sonographic images of the upper abdomen obtained. Findings: Absent gallbladder Common bile duct 0.8 cm no stones Pancreatic head 2.3 cm Liver 17.4 cm no focal liver lesions Normal hepatopedal portal venous flow Patent IVC IMPRESSION: Absent gallbladder Common bile duct 0.8 cm no stones Mild hepatomegaly
--- NOTE | 2024-11-25 12:39 | XR_ITS ---
Examination: CT abdomen with intravenous contrast CT pelvis with intravenous contrast 2-D coronal reconstructions 2-D sagittal reconstructions Date and time of exam:November 25, 2024 1559 hours INDICATIONS: Onset bilateral lower abdominal pain today, history kidney stones COMPARISON: April 21, 2022. CTDI: vol (mGy) 7.62 DLP: (mGycm) 375 Technique: Multiple axial sections of the abdomen and pelvis have been obtained. 64 slice high-resolution scanner used. 3 mm axial sections have been obtained, post intravenous injection 60 cc [id number] 2-D sagittal, coronal reconstructions obtained. Low dose protocols were performed. One or more of the following dose reduction techniques were used; automated exposure control, adjustment of the mA and/or KV according to patient size, use of iterative reconstruction technique. Findings: No focal liver or splenic lesions Absent gallbladder Common bile duct is not enlarged No pancreatic or adrenal mass 2 mm lower pole nonobstructing left renal calculus, coronal image 78 Aorta normal size Appendix is fluid-filled but does not appear inflamed No pericecal inflammatory change No bowel obstruction No diverticulitis No pelvic mass Moderate osteopenia IMPRESSION: 2 mm lower pole nonobstructing left renal calculus, no hydronephrosis Appendix is fluid-filled but not enlarged and no definite periappendiceal inflammatory change, the appearance should be clinically correlated
--- NOTE | 2024-11-25 12:42 | EDNOTE_ITS ---
<Statement entered by Hansa Urrutia MD - 11/26/24 17:32> As co-signing physician, I was present and available for consult prn. I concur with the plan and care as documented by the midlevel provider. ED Abdominal Pain RME/HPI General Chief Complaint: Nausea/Vomiting/Diarrhea Stated complaint: N/V/D Time seen by provider: 11/25/24 11:55 Arrival date/time: 11/25/24 11:46 RME / HPI RME / HPI narrative: 54-year-old female patient came in for evaluation regarding abdominal pain. Patient's been having abdominal pain for the last several days, bilateral lower abdominal in location, described as sharp pain, severity moderate. Patient currently has been having nonbloody vomiting for the last 3 days, and diarrhea started yesterday nonbloody also. Also complained of chills, and generalized body cramping. Denies any other complaints Related Data Previous Rx's ?Medication ?Instructions ?Recorded acetaminophen 650 mg 650 mg PO Q8H PRN fever or p ain 11/13/18 tablet,extended release #30 tabs cyclobenzaprine 10 mg tablet 10 mg PO Q8H PRN muscle s pasm / 11/13/18 pain #14 tabs meloxicam 15 mg tablet (Mobic) 15 mg PO QDAY #10 tabs 11/13/18 dicyclomine 20 mg tablet 20 mg PO BID #14 tabs meloxicam 7.5 mg tablet 7.5 mg PO QDAY #14 tabs 10/22 nitrofurantoin 100 mg PO BID #14 caps 04/01 monohydrate/macrocrystals 100 mg capsule (Macrobid) diphenhydramine HCl 25 mg capsule 25 mg PO TID PRN all ergic reaction 06/04/24 (Allergy (diphenhydramine)) #10 caps prednisone 50 mg tablet 50 mg PO QDAY #3 tabs ondansetron 4 mg disintegrating 4 mg PO Q8H #10 tabs 1 10/24/23 tablet metoclopramide HCl 10 mg tablet 10 mg PO Q6H PRN nause a and 11/25/24 (Reglan) vomiting #20 tabs pantoprazole 40 mg tablet,delayed 40 mg PO QDAY #14 ta bs 11/25/24 release (Protonix) Allergies Allergy/AdvReac Type Severity Reaction Status Date / Time ciprofloxacin Allergy Severe Nausea/Vomi Verified 11/25/24 12:04 tiing codeine Allergy Severe SEVERE Verified 11/25/24 12:04 HEADACHE Review of Systems Review of Systems Narrative Review of Systems: Review of system reviewed and within normal limits except mentioned in HPI ED Exam Narrative Physical exam: VITAL SIGNS: Reviewed. GENERAL APPEARANCE: Alert and interactive, follows commands, no acute distress, HEAD AND FACE: Non-traumatic. ENT: PERRL, pink conjunctivitis, eyelid no trauma, Mucous membrane dry NECK: Supple, nontender, no nuchal rigidity. CHEST: No tenderness, no crepitus, no paradoxical movement, no retractions. LUNGS: Clear, well ventilated, symmetric, no rales, no wheezing, no ronchi, no stridor, good breath sounds bilaterally. HEART: Regular rate, regular rhythm, no murmur, no gallops. ABDOMEN: Soft, positive bowel sounds, nondistended, no guarding, bilateral lower abdominal tenderness, no rebound, no masses, RECTAL: Deferred. GENITAL: Deferred. NEUROLOGICAL: Gross motor function intact sensory function intact, Appropriate for age. MUSCULOSKELETAL: low back nontender, full range of motion. EXTREMITIES: Nontender, full range of motion. SKIN: Color pink, dry, no rash, no lacerations, no abrasions, no contusions. LYMPHATICS: Deferred. Course Quality Measures none Orders Category Date Time Status CT Screening NOW Care 11/25/24 12:39 Active EKG (ED ONLY) *Do not use* NOW Care 11/25/24 12:39 Completed Insert IV NOW Care 11/25/24 14:[address] abdomen pelvis w con Stat Exams 11/25/24 12:39 Completed EKG (ED Only) Stat Exams 11/25/24 12:39 Draft US gall bladder Stat Exams 11/25/24 12:39 Completed CBC Stat Lab 11/25/24 13:33 Completed Comprehensive Metabolic Panel Stat Lab 11/25/24 13:33 Completed Lipase Stat Lab 11/25/24 13:33 Completed Partial Thromboplastin Time Stat Lab 11/25/24 13:33 Completed Prothrombin Time with INR Stat Lab 11/25/24 13:33 Completed UA, C/S IF [Urinalysis, C/S if Indicated] Stat Lab 11/25/24 12:39 Ordered Famotidine Inj [Pepcid Inj] Med 11/25/24 12:42 Discontinued 20 mg IVP X1 ONE Ketorolac Inj [Toradol Inj] Med 11/25/24 12:39 Discontinued 30 mg IVP X1 ONE Ondansetron Inj [Zofran Inj] Med 11/25/24 12:39 Discontinued 4 mg IV X1 ONE Sodium Chloride 0.9% 1000 ml [Ns] 1,000 ml Med 11/25/24 12:40 Discontinued IV 999 mls/hr Vital Signs Vital signs: Vital Signs Temperature 99.0 F 11/25/24 12:29 Pulse Rate 128 H 11/25/24 12:29 Respiratory Rate 16 11/25/24 12:29 Blood Pressure 112/74 11/25/24 12:29 Pulse Oximetry (%) 95 11/25/24 12:29 Oxygen Delivery Method Room Air 11/25/24 12:29 Abdominal Pain MDM MDM Narrative MDM Narrative:: 54-year-old female patient came in for evaluation regarding abdominal pain. Patient's been having abdominal pain for the last several days, bilateral lower abdominal in location, described as sharp pain, severity moderate. Patient currently has been having nonbloody vomiting for the last 3 days, and diarrhea started yesterday nonbloody also. Also complained of chills, and generalized body cramping. Denies any other complaints Patient's workup came back with mild leukocytosis of 11.8 CMP unremarkable except for AST of 72, ALT of 89, alkaline phos of 131. CT scan of the abdomen and pelvis showed 2 mm lower pole nonobstructing left renal calculus, no hydronephrosis Appendix is fluid-filled but not enlarged and no definite periappendiceal inflammatory change, the appearance should be clinically correlated Ultrasound of the gallbladder came back unremarkable. Results discussed with the patient. Prior to discharge patient was noted to be tolerating p.o. fluids, abdominal pain is gone Patient was advised to return to emergency room right away for fever, worsening right lower quadrant pain, and vomiting. Patient data External records reviewed:: None Clinical information provided by:: patient Social determinants that could affect healthcare access:: none Patient has the following chronic illnesses:: Fibromyalgia How is presenting disease/condition affected by chronic disease/condition?: exacerbated by Evaluation data The following diagnostics were reviewed and interpreted by me:: lab results, radiology exam(s) and EKG tracing(s) Lab and/or radiology exams considered but not ordered:: None Interpretation Summary: EKG showed sinus tachycardia, ventricular rate 110 bpm, no ST segment elevation depression noted. Medications / Prescriptions Medications or Prescriptions considered but not ordered:: none Medication administrations:: Medication Administration History Discontinued Medications Famotidine (Famotidine Inj 10 Mg/Ml Vial 2 Ml) 20 mg IVP X1 ONE Stop: 11/25/24 12:43 Last Admin: 11/25/24 14:16 Dose: 20 mg Documented By: LOYDA Sodium Chloride (Ns) 1,000 mls @ 999 mls/hr IV .Q1H1M ONE Stop: 11/25/24 13:40 Last Infusion: 11/25/24 15:30 Dose: Infused Documented By: Admin: 11/25/24 14:14 Dose: 999 mls/hr Documented By: LOYDA Ketorolac Tromethamine (Ketorolac Inj 30 Mg/Ml Vial) 30 mg IVP X1 ONE Stop: 11/25/24 12:40 Last Admin: 11/25/24 14:17 Dose: 30 mg Documented By: LOYDA Ondansetron HCl (Ondansetron Inj 2 Mg/Ml Inj 2 Ml) 4 mg IV X1 ONE; Protocol Stop: 11/25/24 12:40 Last Admin: 11/25/24 14:14 Dose: 4 mg Documented By: LOYDA Toradol Zofran fluids and Pepcid none Consultations Consultation(s) initiated? (list below): No Diagnosis Differential diagnosis abdominal pain: abdominal pain, acute appendicitis and gastroenteritis Most likely diagnosis given after review of the tests above:: Gastroenteritis, abdominal pain Admission Indicated Admission indicated?: not indicated Admission Request Was there a request for admission?: No Disposition Plan Disposition Plan: Discharge Discharge Attestation Discharge Attestation: The patient was given an opportunity to ask questions and understood the discharge instructions. Discharge instructions specifically effects, indications for sooner follow up or return to the emergency department, and the expected course of current diagnosis. Patient condition: Stable Discharge Plan Plan Patient Disposition: HOME (Self Care) Disposition Comment: stable Prescriptions/Referrals Prescriptions/Med Rec: New metoclopramide HCl [Reglan] 10 mg tablet 10 mg PO Q6H PRN (Reason: nausea and vomiting) Qty: 20 0RF pantoprazole [Protonix] 40 mg tablet,delayed release (DR/EC) 40 mg PO QDAY Qty: 14 0RF No Action acetaminophen 650 mg tablet extended release 650 mg PO Q8H PRN (Reason: fever or pain) Qty: 30 0RF Rx Instructions: swallow whole; do not crush, chew, break, dissolve, cut, or open cyclobenzaprine 10 mg tablet 10 mg PO Q8H PRN (Reason: muscle spasm / pain) Qty: 14 0RF meloxicam [Mobic] 15 mg tablet 15 mg PO QDAY Qty: 10 0RF dicyclomine 20 mg tablet 20 mg PO BID Qty: 14 0RF nitrofurantoin monohyd/m-cryst [Macrobid] 100 mg capsule 100 mg PO BID Qty: 14 0RF Rx Instructions: must administer with a meal/food meloxicam 7.5 mg tablet 7.5 mg PO QDAY Qty: 14 0RF prednisone 50 mg tablet 50 mg PO QDAY Qty: 3 0RF diphenhydramine HCl [Allergy (diphenhydramine)] 25 mg capsule 25 mg PO TID PRN (Reason: allergic reaction) Qty: 10 0RF ondansetron 4 mg tablet,disintegrating 4 mg PO Q8H Qty: 10 0RF Referrals: Nilam Balderrama, [facility] [Primary Care Provider] - In 1 week Problem List Clinical Impression: Gastroenteritis, Abdominal pain Patient/Caregiver Discharge Instructions Discharge Activity: activity as tolerated Education Materials: Abdominal Pain Additional Instructions: Thank you for the opportunity for serving you today. You are stable for discharged . You are advised to: Follow-up with your PCP in 1 to 2 days Return to ED for worsening of symptoms, right lower quadrant pain, fever, worsening vomiting Increase oral fluids Take medication as prescribed Print Language: Bruneian Stand Alone Forms: Liz Award Info., Patient Portal Info Letter PA/SALES PLANNING COORDINATOR Supervising Physician PA/SALES PLANNING COORDINATOR Supervising Physician: MD Renan
[2024-11-25 13:41] LABS: Basophils % (Auto) 0 % (0-2.5); Eosinophils % (Auto) 0 % (0-10); Hematocrit 47.1 % (36.0-46.0); Hemoglobin 16.7 g/dL (12.0-16.0); Immature Granulocytes % (Auto) 0 % (0-0); Immature Granulocytes Auto 0.03 Thou/mm3 (0.00-0.00); Lymphocytes # (Auto) 0.9 Thou/mm3 (1.0-4.8); Lymphocytes % (Auto) 8 % (10-50); Mean Corpuscular HGB Conc 35.5 g/dl (31.0-37.0); Mean Corpuscular Volume 85 fL (80-100); Monocytes # (Auto) 0.6 Thou/mm3 (0.0-0.8); Monocytes % (Auto) 5 % (0-12); Neutrophils # (Auto) 10.3 Thou/mm3 (1.8-7.7); Neutrophils % (Auto) 87 % (37-80); Nucleated Red Blood Cell % 0 /100 WBC (0); Platelet Count 312 Thou/mm3 (140-440); RDW Standard Deviation 40.1 fL (36.4-46.3); Red Blood Count 5.56 Miln/mm3 (4.00-5.20); White Blood Count 11.8 Thou/mm3 (3.6-11.0)
[2024-11-25 14:03] LABS: INR 1.1 (0.9-1.3); Partial Thromboplastin Time 35.6 Seconds (22.0-36.0); Prothrombin Time 11.5 Seconds (9.0-12.2)
[2024-11-25 14:09] LABS: Alanine Aminotransferase 89 U/L (10-49); Albumin, Serum 5.7 gm/dL (3.5-5.0); Albumin/Globulin Ratio 1.7 (1.2-2.2); Alkaline Phosphatase 131 U/L (46-116); Anion Gap 14 (7-16); Aspartate Amino Transferase 72 U/L (0-34); BUN/Creatinine Ratio 14 Ratio (12-20); Bilirubin,Total 0.5 mg/dL (0.3-1.2); Blood Urea Nitrogen 15 mg/dL (9-23); Carbon Dioxide 21.7 mMol/L (20.0-31.0); Chloride 102 mMol/L (98-107); Creatinine (Component) 1.1 mg/dL (0.6-1.3); Estimated Creatinine Clearance 47.8 mL/min (>60); Globulin 3.4 gm/dL (2.3-3.5); Glucose 121 mg/dL (74-106); Lipase 30 U/L (12-53); Osmolality,Calculated 277 (275-295); Potassium 3.7 mMol/L (3.4-5.1); Sodium 138 mMol/L (136-145); Total Protein 9.1 gm/dL (5.7-8.2); eGFR 59 See Note
[2024-11-25] MEDS: ONDANSETRON INJ 2 MG/ML INJ 2 ML 4 MG IV (14:14)
[2024-11-25] MEDS: SODIUM CHLORIDE 0.9% 1000 ML 1,000 ML 999 ML IV (14:14)
[2024-11-25] MEDS: FAMOTIDINE INJ 10 MG/ML VIAL 2 ML 20 MG IVP (14:16)
[2024-11-25] MEDS: KETOROLAC INJ 30 MG/ML VIAL IVP (14:17)
[2024-11-25 18:03] VITALS: BP 101/74; PULSE 77; RESP 16; TEMP 36.6; O2SAT 97
== END 2024-11-25 18:05 | disposition home or self-care (01) ==
PROVIDERS: Nurse Practitioner Family; Emergency Provider Emergency Medicine; PCP Registered Nurse Community Health
DX: K52.9 Noninfective gastroenteritis and colitis, unspecified (principal); N20.0 Calculus of kidney; R00.0 Tachycardia, unspecified
CPT/HCPCS: 36415; 74177; 76705; 80053; 81001; 83690; 85025; 85610; 85730; 93005; 96361; 96374; 96375; 99285; A4649; J1885; J2405; J3490; J7030; Q9967

== ENCOUNTER 2024-11-28 10:30 | Outpatient (RCR) | payer MEDICAID, SELFPAY ==
--- NOTE | 2024-11-01 11:58 | PT.ODAYNRPT ---
PT Outpatient Daily Note OP Daily Note Outpatient Physical Therapy Treatment Date: 11/01/24 Visit Reasons: Left shoulder pain Subjective: No change in arm pain. Pt notice more swelling in her fingers now and arm falls asleep Objective: Please see flow chart for list of ther ex performed Assessment: difficulty tolerating ER stretch today due to pain. Minimal progress with shoulder ROM noted. Post ice helped with pain Plan: Continue with PT Length of Time (minutes) of Treatment: 30 Minutes Procedure Charges Therapeutic Exercise 30 minutes: Yes
--- NOTE | 2024-11-23 11:28 | PT.ODAYNRPT ---
PT Outpatient Daily Note OP Daily Note Outpatient Physical Therapy Treatment Date: 11/23/24 Visit Reasons: Left shoulder pain Subjective: Pt reports shoulder is doing ok, just returned last night from vacation so she is feeling really tired. Pt was on vacation 2 weeks but seen her surgeons assistance before she left, pjon entry level administrative assistant stretched pt arm to max end range and pt said it was really painful. Surgeon assistance recommended pt to continue with PT and instructed to add more weight during PT, that pt should be further along with shoulder ROM. Objective: Please see flow sheet for ther ex list. Assessment: Progressing stretches and PROM range per surgeon request, limitation due to pt pain response and guarding. Plan: Continue with pOC. Length of Time (minutes) of Treatment: 30 Minutes Procedure Charges Therapeutic Exercise 30 minutes: Yes
--- NOTE | 2024-11-28 12:52 | PT.ODS1RPT ---
PT OP Progress/Discharge Note Date of Service: 11/28/24 Progress Note/DC Note Progress Note/Discharge Note: Progress Note Patient Information Visit Reasons: Left shoulder pain Medical Diagnosis: M75.22 Treatment Dx #1: Left Shoulder Pain Treatment Dx #2: Left Shoulder Mobility Deficits Service Continue Service or Discharge: Continue Service Certification Date Certification Dates: 11/28/24 to Status Subjective: Pt's shoulder feels stiff and still has pain with activities. Pt recently came back from her trip in [place] and has not seen her provider. Pt has a follow up appt with surgeon ~ 3 weeks from now. Pt has limitation with overhead motions, lifting, chores, self care, cooking, and recreational activities. Most of patients pain is in the front of the shoulder and it feels stuck with arm movements. Objective: Left Shoulder AROM Flexion: 90 deg Abduction: 75 deg External Rotation: 60 deg Internal Rotation: 50 deg Left Shoulder MMTs: grossly 3/5 Left Scapula MMTs: grossly 3/5 HBB AROM: thumb at L3 Assessment: Pt demonstrate slow improvement with shoulder AROM and strength which continues to limit her ability to progress with functional tasks or recreational activities. Pt has not been in therapy for several weeks due to [place]. Pt has not met set goals and will continue to benefit from physical therapy; thank you for your referrals. Plan: Continue with PT/POC and add 12 sessions (2 x wk for 6 wks) Procedure Charges Therapeutic Exercise 30 minutes: Yes
== END 2024-11-28 23:59 | disposition home or self-care (01) ==
LOC: CPTX 10:30
PROVIDERS: PCP Orthopaedic Surgery; Referring Provider Orthopaedic Surgery; Visit Provider Orthopaedic Surgery
DX: M25.512 Pain in left shoulder (principal); S43.432D Superior glenoid labrum lesion of left shoulder, subsequent encounter; X58.XXXD Exposure to other specified factors, subsequent encounter; M75.22 Bicipital tendinitis, left shoulder
CPT/HCPCS: 97110

== ENCOUNTER 2024-12-13 10:30 | Outpatient (RCR) | payer MEDICAID, SELFPAY ==
--- NOTE | 2024-12-06 12:52 | PT.ODAYNRPT ---
PT Outpatient Daily Note OP Daily Note Outpatient Physical Therapy Treatment Date: 12/06/24 Visit Reasons: LEFT SHOULDER PAIN Subjective: Pt's shoulder pain is and limited ROM is the same. Minimal improvement lately. Objective: HBB AROM: thumb at L4 Assessment: slight improvement with HBB AROM post stretching. Minimal changes in AROM in all plane due to adhesive capsulitis. Pt continue to have poor tolerance to passive ER stretching from therapist Plan: Continue with PT Length of Time (minutes) of Treatment: 30 Minutes Procedure Charges Therapeutic Exercise 30 minutes: Yes
--- NOTE | 2024-12-08 10:53 | PT.ODAYNRPT ---
PT Outpatient Daily Note OP Daily Note Outpatient Physical Therapy Treatment Date: 12/08/24 Visit Reasons: LEFT SHOULDER PAIN Subjective: Pt continues to have pain and numbness in her arm. Pt has a follow up appt with surgeon at the end of month. Objective: Please see flow chart for list of ther ex performed Assessment: slowly progressing with HBB AROM; continue to guard with shoulder ER passive stretching Plan: Continue with PT Length of Time (minutes) of Treatment: 30 Minutes Procedure Charges Therapeutic Exercise 30 minutes: Yes
--- NOTE | 2024-12-13 11:03 | PT.ODAYNRPT ---
PT Outpatient Daily Note OP Daily Note Outpatient Physical Therapy Treatment Date: 12/13/24 Visit Reasons: LEFT SHOULDER PAIN Subjective: Pt's shoulder feels okay and notice she's able to reach further behind her back. Pt will follow up with surgeon 12/28/24 Objective: Please see flow chart for list of ther ex performed Assessment: slowly improving with HBB AROM with less pain reported in ant aspect. Attempted 2# weight with sidelying shoulder exercises but unable due to reporting of the weight being to heavy. Exercises modified back to 1# Plan: Conitnue with PT Length of Time (minutes) of Treatment: 30 Minutes Procedure Charges Therapeutic Exercise 30 minutes: Yes
--- NOTE | 2025-01-16 16:03 | PT.ODS1RPT ---
PT OP Progress/Discharge Note Date of Service: 01/16/25 Progress Note/DC Note Progress Note/Discharge Note: DC Note Patient Information Visit Reasons: LEFT SHOULDER PAIN Service Discharge Date: 01/16/25 Status Assessment: Pt has been seen for 25 visits (eval + 24 visits). Pt last treated on 12/13/24 and has not return to therapy. Pt called 01/16/25 due to pending shoulder LILIAN. Pt does not have a date yet and will come back to therapy post shoulder LILIAN. Pt did not meet set goals in therapy; thank you for your referrals.
== END 2024-12-28 23:59 | disposition home or self-care (01) ==
LOC: CPTX 10:30
PROVIDERS: PCP Orthopaedic Surgery; Referring Provider Orthopaedic Surgery; Visit Provider Orthopaedic Surgery
DX: M25.512 Pain in left shoulder (principal); M25.612 Stiffness of left shoulder, not elsewhere classified; S43.432D Superior glenoid labrum lesion of left shoulder, subsequent encounter; X58.XXXD Exposure to other specified factors, subsequent encounter
CPT/HCPCS: 97110

== ENCOUNTER 2025-02-03 12:50 | Emergency (ER) | payer MEDICAID, SELFPAY ==
[2025-02-03 13:00] VITALS: BP 112/62; PULSE 78; RESP 16; TEMP 36.6; O2SAT 96; BMI 26.4
--- NOTE | 2025-02-03 13:15 | XR_ITS ---
Examination: CT abdomen with intravenous contrast CT pelvis with intravenous contrast 2-D coronal reconstructions 2-D sagittal reconstructions Date and time of exam:February 03, 2025 1530 hours INDICATIONS: Right lower abdominal pain and vomiting beginning 6 months ago worse last 2 weeks. CTDI: vol (mGy) 7.97 DLP: (mGycm) 404 Technique: Multiple axial sections of the abdomen and pelvis have been obtained. 64 slice high-resolution scanner used. 3 mm axial sections have been obtained, post intravenous injection 60 cc [id number] 2-D sagittal, coronal reconstructions obtained. Low dose protocols were performed. One or more of the following dose reduction techniques were used; automated exposure control, adjustment of the mA and/or KV according to patient size, use of iterative reconstruction technique. Findings: Hepatomegaly 18 cm No focal liver or splenic lesions Absent gallbladder No extra hepatic biliary duct dilatation No renal or ureteral calculi, no hydronephrosis Normal appendix No bowel obstruction No diverticulitis Absent uterus No adnexal mass Urinary bladder intact Moderate disc narrowing L5-S1 IMPRESSION: Hepatomegaly, 18 cm No renal or ureteral calculi. Normal appendix No bowel obstruction diverticulitis or free air
--- NOTE | 2025-02-03 13:17 | PD.EDRME ---
Rapid Medical Screening Exam RME Arrival date/time: 02/03/25 12:50 54-year-old female with no known medical history was sent over to the emergency room after having an abnormal ultrasound that is suspicious of acute appendicitis. I have greeted and performed a focused initial assessment of this patient. A comprehensive ED assessment and evaluation of the patient, analysis of all test results, and completion of the medical decision making process will be conducted by additional ED providers. Chief Complaint: Abdominal Pain Time Seen by Provider: 02/03/25 13:04 Vital signs: Vital Signs Temperature 97.9 F 02/03/25 13:00 Pulse Rate 78 02/03/25 13:00 Respiratory Rate 16 02/03/25 13:00 Blood Pressure 112/62 02/03/25 13:00 Pulse Oximetry (%) 96 02/03/25 13:00 Oxygen Delivery Method Room Air 02/03/25 13:00 Vital signs reviewed by provider: Yes
[2025-02-03 13:33] LABS: Basophils # (Auto) 0.1 Thou/mm3 (0.0-0.2); Basophils % (Auto) 1 % (0-2.5); Eosinophils # (Auto) 0.1 Thou/mm3 (0.0-0.5); Eosinophils % (Auto) 1 % (0-10); Hemoglobin 13.4 g/dL (12.0-16.0); Immature Granulocytes % (Auto) 0 % (0-0); Immature Granulocytes Auto 0.01 Thou/mm3 (0.00-0.00); Lymphocytes # (Auto) 2.2 Thou/mm3 (1.0-4.8); Lymphocytes % (Auto) 25 % (10-50); Mean Corpuscular HGB Conc 35.3 g/dl (31.0-37.0); Mean Corpuscular Hemoglobin 30.4 pg (25.0-35.0); Mean Corpuscular Volume 86 fL (80-100); Monocytes # (Auto) 0.6 Thou/mm3 (0.0-0.8); Monocytes % (Auto) 6 % (0-12); Neutrophils # (Auto) 5.9 Thou/mm3 (1.8-7.7); Neutrophils % (Auto) 67 % (37-80); Nucleated Red Blood Cell % 0 /100 WBC (0); Platelet Count 291 Thou/mm3 (140-440); RDW Standard Deviation 42.6 fL (36.4-46.3); Red Blood Count 4.41 Miln/mm3 (4.00-5.20); White Blood Count 8.8 Thou/mm3 (3.6-11.0)
[2025-02-03 13:49] LABS: Alanine Aminotransferase 24 U/L (10-49); Albumin, Serum 4.6 gm/dL (3.5-5.0); Albumin/Globulin Ratio 1.9 (1.2-2.2); Alkaline Phosphatase 59 U/L (46-116); Anion Gap 10 (7-16); Aspartate Amino Transferase 25 U/L (0-34); BUN/Creatinine Ratio 27 Ratio (12-20); Bilirubin,Total 0.4 mg/dL (0.3-1.2); Blood Urea Nitrogen 16 mg/dL (9-23); C-Reactive Protein < 0.5 mg/dL (0.0-0.9); Carbon Dioxide 26.6 mMol/L (20.0-31.0); Chloride 107 mMol/L (98-107); Creatinine (Component) 0.6 mg/dL (0.6-1.3); Estimated Creatinine Clearance 97.8 mL/min (>60); Globulin 2.4 gm/dL (2.3-3.5); Glucose 101 mg/dL (74-106); Osmolality,Calculated 288 (275-295); Potassium 4.3 mMol/L (3.4-5.1); Sodium 144 mMol/L (136-145); eGFR > 60 See Note
[2025-02-03 14:07] LABS: Sed Rate (ESR) 12 mm/hr (0-30)
[2025-02-03 14:59] LABS: Collection Type, Urine Clean Catch
[2025-02-03 15:15] LABS: Bilirubin,Urine Negative (Negative); Blood,Urine Negative (Negative); Clarity,Urine Clear (Clear/Hazy); Color,Urine Lt-Yellow (Lt Yel-Yel); Culture Indicated,Urine Not Indicated; Glucose, Urine Negative (Negative); Ketones,Urine Negative (Negative); Leukocyte Esterase,Urine Negative (Negative); Nitrite,Urine Negative (Negative); Protein,Urine Negative (Neg - Trace); RBC,Urine 1 /hpf (0-3); Specific Gravity,Urine 1.023 (1.001-1.035); Squamous Epithelial Cell,Urine < 1 /hpf (0-5); Urobilinogen,Urine Negative mg/dL (0.0-1.0); WBC,Urine 1 /hpf (0-5)
--- NOTE | 2025-02-03 17:06 | PD.EDABDPN ---
ED Abdominal Pain RME/HPI General Chief Complaint: Abdominal Pain Stated complaint: ABNORMAL US OF APPENDIX Time seen by provider: 02/03/25 13:04 Arrival date/time: 02/03/25 12:50 54-year-old female with no known medical history was sent over to the emergency room after having an abnormal ultrasound that is suspicious of acute appendicitis. Source: patient Mode of arrival: ambulatory Limitations: no limitations RME / HPI RME / HPI narrative: 02/03/25 12:50 54-year-old female with no known medical history was sent over to the emergency room after having an abnormal ultrasound that is suspicious of acute appendicitis. I have greeted and performed a focused initial assessment of this patient. A comprehensive ED assessment and evaluation of the patient, analysis of all test results, and completion of the medical decision making process will be conducted by additional ED providers. Related Data Previous Rx's ?Medication ?Instructions ?Recorded acetaminophen 650 mg 650 mg PO Q8H PRN fever or pain 11/13/18 tablet,extended release #30 tabs cyclobenzaprine 10 mg tablet 10 mg PO Q8H PRN muscle spasm / 11/13/18 pain #14 tabs meloxicam 15 mg tablet (Mobic) 15 mg PO QDAY #10 tabs 11/13/18 dicyclomine 20 mg tablet 20 mg PO BID #14 tabs 04/01/22 meloxicam 7.5 mg tablet 7.5 mg PO QDAY #14 tabs 04/01/22 nitrofurantoin 100 mg PO BID #14 caps 04/01/22 monohydrate/macrocrystals 100 mg capsule (Macrobid) diphenhydramine HCl 25 mg capsule 25 mg PO TID PRN allergic reaction 06/04/24 (Allergy (diphenhydramine)) #10 caps prednisone 50 mg tablet 50 mg PO QDAY #3 tabs 06/04/24 ondansetron 4 mg disintegrating 4 mg PO Q8H #10 tabs 08/23/24 tablet metoclopramide HCl 10 mg tablet 10 mg PO Q6H PRN nausea and 11/25/24 (Reglan) vomiting #20 tabs pantoprazole 40 mg tablet,delayed 40 mg PO QDAY #14 tabs 11/25/24 release (Protonix) Allergies Allergy/AdvReac Type Severity Reaction Status Date / Time ciprofloxacin Allergy Severe Nausea/Vomi Verified 02/03/25 12:55 tiing codeine Allergy Severe SEVERE Verified 02/03/25 12:55 HEADACHE Review of Systems Review of Systems Systems Reviewed: All systems reviewed, normal except as documented Constitutional Constitutional: Reports system reviewed and no additional complaints, except as documented, Denies fatigue, Denies fever(s), Denies headache(s) and Denies weakness Eyes Eyes: Reports system reviewed and no additional complaints, except as documented, Denies blurry vision and Denies change in vision ENT Ears, Nose, Mouth, and Throat: Reports system reviewed and no additional complaints, except as documented, Denies otalgia, Denies headache(s), Denies nasal congestion, Denies throat swelling and Denies vertigo Cardiovascular Cardiovascular: Reports system reviewed and no additional complaints, except as documented, Denies chest pain, Denies dyspnea and Denies dyspnea on exertion Respiratory Respiratory: Reports system reviewed and no additional complaints, except as documented, Denies chest congestion, Denies cough, Denies dyspnea, Denies dyspnea on exertion and Denies wheezing Gastrointestinal Gastrointestinal: Reports system reviewed and no additional complaints, except as documented, Reports abdominal pain, Reports cramping, Reports nausea and Denies vomiting Genitourinary Genitourinary: Reports system reviewed and no additional complaints, except as documented Musculoskeletal Musculoskeletal: Reports system reviewed and no additional complaints, except as documented and Denies back pain Integumentary/Breasts Skin/Breast: Reports system reviewed and no additional complaints, except as documented and Denies wounds Neurologic Neurologic: Reports system reviewed and no additional complaints, except as documented, Denies confusion, Denies headache(s), Denies lack of coordination, Denies vertigo and Denies weakness Psychiatric Psychiatric: Reports system reviewed and no additional complaints, except as documented, Denies anxiety, Denies confusion, Denies depression, Denies paranoia, Denies suicidal ideation and Denies tactile hallucinations Endocrine Endocrine: Reports system reviewed and no additional complaints, except as documented and Denies fatigue Hematologic/Lymphatic Hematologic/Lymphatic: Reports system reviewed and no additional complaints, except as documented and Denies lymphadenopathy Allergic/Immunologic Allergic/Immunologic: Reports system reviewed and no additional complaints, except as documented, Denies throat swelling, Denies urticaria and Denies wheezing Past Medical History Past Medical History NEUROLOGIC: Positive Neurological Disorders and Migraine; Negative Seizures CARDIAC: Positive Cardiac Arrhythmia and Hypercholesterolemia; Negative Cardiac Disorders or Congestive Heart Failure RESPIRATORY: Negative Chronic Obstructive Pulmonary Disease (COPD) or Asthma GASTROINTESTINAL: Negative Gastrointestinal Disorders or Hepatitis GENITOURINARY: Negative Genitourinary Disorders or Renal Disease REPRODUCTIVE: Positive Previous Pregnancies; Negative Pelvic Inflammatory Disease MUSCULOSKELETAL: Positive Musculoskeletal Disorders, Arthritis, Rheumatoid Arthritis, Osteoporosis and Fibromyalgia ENDOCRINE: Negative Endocrine Disorders, Diabetes Mellitus Type 1 or Diabetes Mellitus Type 2 HEMATOLOGIC: Negative Blood Disorders or Sickle Cell Disease PSYCHO/SOCIAL: Positive Depression OTHER HISTORY: Negative Blood Transfusions, Blood Transfusion Reaction, Anesthesia Reactions, MRSA, VRSA, Vancomycin-Resistant Enterococci, Clostridium Difficile or Cancer Family History FAMILY HISTORY: Positive Family Cardiac Disorders and Family Cancer Surgical History SURGICAL: Positive Hysterectomy Social History SMOKING STATUS: Never smoker ED Exam General Limitations: Present no limitations General appearance: Present alert and in no apparent distress Head Head exam: Present atraumatic Eye Eye exam: Present normal appearance, PERRL and EOMI ENT ENT exam: Present normal exam, normal oropharynx and mucous membranes moist Neck Neck exam: Present normal inspection, full ROM and trachea midline Chest Chest inspection: Present normal inspection and symmetric chest wall rise Respiratory Respiratory exam: Present normal lung sounds bilaterally Cardiovascular Cardiovascular exam: Present regular rate, normal rhythm and normal heart sounds Abdominal Exam Abdominal exam: Present soft, tenderness, normal bowel sounds and tenderness at McBurney's Point Abdominal tenderness: Present RLQ and mild Extremities Exam Extremities exam: Present normal inspection and full ROM Back Exam Back exam: Present normal inspection and full ROM Neurological Exam Neurological exam: Present alert, oriented X3 and CN II-XII intact Psychiatric Psychiatric exam: Present normal affect and normal mood Skin Skin exam: Present warm, dry, intact and normal color Course Quality Measures none Orders Category Date Time Status CT Screening NOW Care 02/03/25 13:[address] abdomen pelvis w con Stat Exams 02/03/25 13:15 Completed CBC Stat Lab 02/03/25 13:24 Completed CMP [Comprehensive Metabolic Panel] Stat Lab 02/03/25 13:24 Completed CRP [C-Reactive Protein] Stat Lab 02/03/25 13:24 Completed ESR [Sed Rate (ESR)] Stat Lab 02/03/25 13:24 Completed UA, C/S IF [Urinalysis, C/S if Indicated] Stat Lab 02/03/25 14:49 Completed Vital Signs Vital signs: Vital Signs Temperature 97.9 F 02/03/25 13:00 Pulse Rate 78 02/03/25 13:00 Respiratory Rate 16 02/03/25 13:00 Blood Pressure 112/62 02/03/25 13:00 Pulse Oximetry (%) 96 02/03/25 13:00 Oxygen Delivery Method Room Air 02/03/25 13:00 O2 saturation 96% within normal limits Abdominal Pain MDM MDM Narrative MDM Narrative:: 54-year-old female with no known medical history was sent over to the emergency room after having an abnormal ultrasound that is suspicious of acute appendicitis. Patient is hemodynamically stable and in no apparent distress Patient is afebrile not tachycardic not tachypneic Physical examination shows tenderness and pain to the patient's right lower quadrant with positive tenderness to McBurney's point. The patient had an ultrasound that was suspicious for acute appendicitis this was sent over by her primary care provider Our radiologist recommends a CT of the abdomen and pelvis. CT was ordered and was negative for any appendicitis or any acute findings Patient was discharged and educated to follow-up with primary care provider in the next 24 to 48 hours and return to the emergency room for any evidence of worsening signs or symptoms Patient data External records reviewed:: [facility] previous records Clinical information provided by:: patient Social determinants that could affect healthcare access:: none Patient has the following chronic illnesses:: No chronic illness How is presenting disease/condition affected by chronic disease/condition?: no chronic disease Evaluation data The following diagnostics were reviewed and interpreted by me:: lab results and radiology exam(s) Lab and/or radiology exams considered but not ordered:: Labs and radiology exams considered in order Interpretation Summary: CT abdomen pelvis-Findings: Hepatomegaly 18 cm No focal liver or splenic lesions Absent gallbladder No extra hepatic biliary duct dilatation No renal or ureteral calculi, no hydronephrosis Normal appendix No bowel obstruction No diverticulitis Absent uterus No adnexal mass Urinary bladder intact Moderate disc narrowing L5-S1 IMPRESSION: Hepatomegaly, 18 cm No renal or ureteral calculi. Normal appendix No bowel obstruction diverticulitis or free air Medications / Prescriptions Medications or Prescriptions considered but not ordered:: No medication given Medication administrations:: No medication given Consultations Consultation(s) initiated? (list below): No Diagnosis Differential diagnosis abdominal pain: abdominal pain, acute appendicitis, constipation and gastroenteritis Most likely diagnosis given after review of the tests above:: Abdominal pain Admission Indicated Admission indicated?: not indicated Admission Request Was there a request for admission?: No Disposition Plan Disposition Plan: Discharge Discharge Attestation Discharge Attestation: The patient and all family members were given an opportunity to ask questions and understood the discharge instructions. Discharge instructions specifically effects, indications for sooner follow up or return to the emergency department, and the expected course of current diagnosis. Patient condition: Stable Discharge Plan Plan Patient Disposition: HOME (Self Care) Discharge Disposition comment: Stable Prescriptions/Referrals Prescriptions/Med Rec: No Action acetaminophen 650 mg tablet extended release 650 mg PO Q8H PRN (Reason: fever or pain) Qty: 30 0RF Rx Instructions: swallow whole; do not crush, chew, break, dissolve, cut, or open cyclobenzaprine 10 mg tablet 10 mg PO Q8H PRN (Reason: muscle spasm / pain) Qty: 14 0RF meloxicam [Mobic] 15 mg tablet 15 mg PO QDAY Qty: 10 0RF dicyclomine 20 mg tablet 20 mg PO BID Qty: 14 0RF nitrofurantoin monohyd/m-cryst [Macrobid] 100 mg capsule 100 mg PO BID Qty: 14 0RF Rx Instructions: must administer with a meal/food meloxicam 7.5 mg tablet 7.5 mg PO QDAY Qty: 14 0RF prednisone 50 mg tablet 50 mg PO QDAY Qty: 3 0RF diphenhydramine HCl [Allergy (diphenhydramine)] 25 mg capsule 25 mg PO TID PRN (Reason: allergic reaction) Qty: 10 0RF metoclopramide HCl [Reglan] 10 mg tablet 10 mg PO Q6H PRN (Reason: nausea and vomiting) Qty: 20 0RF pantoprazole [Protonix] 40 mg tablet,delayed release (DR/EC) 40 mg PO QDAY Qty: 14 0RF ondansetron 4 mg tablet,disintegrating 4 mg PO Q8H Qty: 10 0RF Referrals: Nilam Balderrama FNP [Primary Care Provider] - In 1 week Problem List Clinical Impression: Abdominal pain Patient/Caregiver Discharge Instructions Education Materials: Abdominal Pain Additional Instructions: Please follow-up with your primary care provider in the next [address] of your abdomen and pelvis was completed and it was negative for appendicitis. Your blood work and urinalysis are all within normal limits Please follow-up with your primary care provider for further management of your abdominal pain For any evidence of worsening signs or symptoms return to the emergency room immediate Print Language: Korean Stand Alone Forms: Liz Award Info., Patient Portal Info Letter PA/NEWS [place] Supervising Physician PA/MIKEY Supervising Physician: Dr. Amador
[2025-02-03 18:42] VITALS: BP 122/78; PULSE 78
== END 2025-02-03 18:43 | disposition home or self-care (01) ==
PROVIDERS: Nurse Practitioner Family; Emergency Provider Emergency Medicine; PCP Registered Nurse Community Health
DX: R10.31 Right lower quadrant pain (principal)
CPT/HCPCS: 36415; 74177; 80053; 81001; 85025; 85652; 86140; 99285; A4649; Q9967

== ENCOUNTER → 2025-02-03 | Outpatient (CLI) | payer MEDICAID, SELFPAY ==
--- NOTE | 2025-02-03 10:47 | XR_ITS ---
Examination: Abdomen sonogram, Limited Date and time of exam: February 03, 2025 1055 hours INDICATIONS: Right lower abdominal pain with vomiting 6 months, worse the last 2 weeks Technique: Real-time limon scale transabdominal sonographic images of the upper abdomen obtained. Findings: Noncompressible tubular structure in the right lower abdomen 4.7 x 1.3 x 2.3 cm and adjacent noncompressible tubular structure 2.9 x 1.5 x 1.4 cm IMPRESSION: Sonographic findings suspicious for appendicitis, consider CT scan abdomen pelvis post intravenous contrast follow-up
== END | disposition home or self-care (01) ==
PROVIDERS: PCP Registered Nurse Community Health; Referring Provider Registered Nurse Community Health; Visit Provider Registered Nurse Community Health
DX: R10.31 Right lower quadrant pain (principal); R11.10 Vomiting, unspecified
CPT/HCPCS: 76705

== ENCOUNTER 2025-02-24 10:00 | Outpatient (RCR) | payer MEDICAID, SELFPAY ==
--- NOTE | 2025-02-14 11:41 | PTNOTE_ITS ---
PT OP Initial Eval Patient Information Outpatient Physical Therapy Treatment Date: 02/14/25 Visit Reasons: left shoulder surgery Medical Diagnosis: M75.02 Treatment Dx #1: Left Shoulder Mobility Deficits Treatment Dx #2: Left Shoulder Weakness Start of Care: 02/14/25 Date of Onset: 02/13/25 Smoking Status Smoking Status: Never smoker Initial Assessment Subjective: Pt is a 54 y/o female s/p left shoulder LILIAN 02/13/[address] Giordano. Pt mentioned her shoulder froze after she fell 08/23/24 where she ruptured her biceps. No surgical procedure was recommended for the biceps. Prior to her fall patient was already doing physical therapy and progressing well for a bicep tenodesis and labrum debridement 07/22/24. Pt still has limitation with overhead motions, lifting, chores, self care, cooking, cleaning, and performing recreational activities. Objective: Left Shoulder PROM Flexion:14 deg Abduction: 90 deg External Rotation: 70 deg Internal Rotation: 45 deg Left Shoulder AROM Flexion: 90 deg Abduction: 65 deg ER and IR: NT Left Shoulder MMTs: grossly 3-/5 Left Scapula MMTs: grossly 3-/5 Assessment: Pt demonstrate left shoulder mobility and strength deficits s/p left shoulder LILIAN leading to difficulty with ADLs. Pt will benefit from physical therapy to i ncrease ROM, strength, and work on stability. 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 1) Increase left shoulder AROM WFL in 12 wks to be able to perform overhead motions 2) Increase left shoulder MMTs grossly to 4-/5 in 12 wks to be able to perform recreational activities 3) Increase left scapula MMTs grossly to 3+/5 in 12 wks to be able to cook and clean 4) Increase left shoulder PROM WFL in 12 wks to be able to perform self care activities 5) Indep with HEP Treatment Plan 1) Manual Therapy 2) Therapeutic Activities 3) Therapeutic Exercises 4) Modalities (ice, heat, estim) 5) This patient's plan of care will be transfer to Shane Burch PT, DPT as of 02/14/25 Frequency and Duration: 2-3 x wk for 12 wks Certification Dates: 02/14/25 to 05/17/25 Procedure Charges OP PT Eval Mod Complex 30 minutes: Yes
--- NOTE | 2025-02-16 14:13 | PT.ODAYNRPT ---
PT Outpatient Daily Note OP Daily Note Outpatient Physical Therapy Treatment Date: 02/16/25 Visit Reasons: left shoulder surgery Subjective: Better ROM since LILIAN with continued pain Objective: See F/S for therex MT: PROM into FF, abd and ER x7' Assessment: Pain limits PROM of L shoulder especially into abduction Plan: Improve ROM of L shoulder Length of Time (minutes) of Treatment: 30 Minutes Procedure Charges Therapeutic Exercise 30 minutes: Yes
--- NOTE | 2025-02-20 12:48 | PT.ODAYNRPT ---
PT Outpatient Daily Note OP Daily Note Outpatient Physical Therapy Treatment Date: 02/20/25 Visit Reasons: left shoulder surgery Subjective: Better ROM since LILIAN with continued pain Objective: See F/S for therex MT: PROM into FF, abd and ER x7' Assessment: Pain limits PROM of L shoulder especially into abduction Plan: Improve ROM of L shoulder Length of Time (minutes) of Treatment: 30 Minutes Procedure Charges Therapeutic Exercise 30 minutes: Yes
--- NOTE | 2025-02-20 12:50 | PT.ODAYNRPT ---
PT Outpatient Daily Note OP Daily Note Outpatient Physical Therapy Treatment Date: 02/20/25 Visit Reasons: left shoulder surgery Length of Time (minutes) of Treatment: 30 Minutes Procedure Charges Therapeutic Exercise 30 minutes: Yes
--- NOTE | 2025-02-22 12:17 | PT.ODAYNRPT ---
PT Outpatient Daily Note OP Daily Note Outpatient Physical Therapy Treatment Date: 02/22/25 Visit Reasons: left shoulder surgery Subjective: Better ROM since LILIAN with continued pain Objective: See F/S for therex MT: PROM into FF, abd and ER x7' Assessment: Pain limits PROM of L shoulder especially into abduction. Pt has poor GH glide with abduction and pain superior shoulder. Plan: Improve ROM of L shoulder Length of Time (minutes) of Treatment: 30 Minutes Procedure Charges Therapeutic Exercise 30 minutes: Yes
--- NOTE | 2025-02-24 11:06 | PT.ODAYNRPT ---
PT Outpatient Daily Note OP Daily Note Outpatient Physical Therapy Treatment Date: 02/24/25 Visit Reasons: left shoulder surgery Subjective: Pt reports L shoulder is moving better but pain is still present. Objective: Please see flow sheet for ther ex list. Assessment: High focus on improving ROm and GH translation. Plan: Continue with pOC. Length of Time (minutes) of Treatment: 30 Minutes Procedure Charges Therapeutic Exercise 30 minutes: Yes
== END 2025-02-27 23:59 | disposition home or self-care (01) ==
LOC: CPTX 10:00
PROVIDERS: PCP Orthopaedic Surgery; Referring Provider Orthopaedic Surgery; Visit Provider Orthopaedic Surgery
DX: R53.1 Weakness (principal); Z98.890 Other specified postprocedural states; M75.02 Adhesive capsulitis of left shoulder
CPT/HCPCS: 97110; 97162

== ENCOUNTER 2025-03-28 10:00 | Outpatient (RCR) | payer MEDICAID, SELFPAY ==
--- NOTE | 2025-02-28 18:37 | PT.ODAYNRPT ---
PT Outpatient Daily Note OP Daily Note Outpatient Physical Therapy Treatment Date: 02/28/25 Visit Reasons: Left shoulder surgery Subjective: Better ROM since LILIAN with continued pain Objective: See F/S for therex MT: PROM into FF, abd and ER x7' Assessment: Pain limits PROM of L shoulder especially into abduction. Pt has poor GH glide with abduction and pain superior shoulder. Plan: Improve ROM of L shoulder Length of Time (minutes) of Treatment: 30 Minutes Procedure Charges Therapeutic Exercise 30 minutes: Yes
--- NOTE | 2025-03-02 16:28 | PT.ODAYNRPT ---
PT Outpatient Daily Note OP Daily Note Outpatient Physical Therapy Treatment Date: 03/02/25 Visit Reasons: Left shoulder surgery Subjective: Better ROM since LILIAN with continued pain Objective: See F/S for therex Assessment: Improved AROM of L shoulder into FF to about 130 deg but ER is limited Plan: Improve ROM of L shoulder Length of Time (minutes) of Treatment: 30 Minutes Procedure Charges Therapeutic Exercise 30 minutes: Yes
--- NOTE | 2025-03-06 16:42 | PT.ODAYNRPT ---
PT Outpatient Daily Note OP Daily Note Outpatient Physical Therapy Treatment Date: 03/06/25 Visit Reasons: Left shoulder surgery Subjective: Better ROM since LILIAN with continued pain Objective: See F/S for therex Assessment: Improved AROM of L shoulder into FF to about 130 deg. PROM into ER has improved to almost 90 deg. More pain into FF at end-range Plan: Improve ROM of L shoulder Length of Time (minutes) of Treatment: 30 Minutes Procedure Charges Therapeutic Exercise 30 minutes: Yes
--- NOTE | 2025-03-08 18:01 | PT.ODAYNRPT ---
PT Outpatient Daily Note OP Daily Note Outpatient Physical Therapy Treatment Date: 03/08/25 Visit Reasons: Left shoulder surgery Subjective: Better ROM since LILIAN with continued pain Objective: See F/S for therex Assessment: Improved AROM of L shoulder into FF to about 130 deg. PROM into ER has improved to almost 90 deg. More pain into FF at end-range Plan: Improve ROM and strength of L shoulder Length of Time (minutes) of Treatment: 30 Minutes Procedure Charges Therapeutic Exercise 30 minutes: Yes
--- NOTE | 2025-03-13 12:58 | PT.ODAYNRPT ---
PT Outpatient Daily Note OP Daily Note Outpatient Physical Therapy Treatment Date: 03/13/25 Visit Reasons: Left shoulder surgery Subjective: Better ROM since LILIAN with continued pain Objective: See F/S for therex MT: PROM into FF, abd and ER x5' Assessment: Improved AROM of L shoulder into FF to about 130 deg. PROM into ER has improved to almost 90 deg. More pain into FF at end-range Plan: Improve ROM and strength of L shoulder Length of Time (minutes) of Treatment: 30 Minutes Procedure Charges Therapeutic Exercise 30 minutes: Yes
--- NOTE | 2025-03-15 13:54 | PT.ODAYNRPT ---
PT Outpatient Daily Note OP Daily Note Outpatient Physical Therapy Treatment Date: 03/15/25 Visit Reasons: Left shoulder surgery Subjective: Pt content to share that her shoulder is moving better, has a follow up with MD today. Objective: Please see flow sheet for therex list. Assessment: Pt ROm continues to improve, pt follows up with specialist today. Plan: Continue with poC. Length of Time (minutes) of Treatment: 30 Minutes Procedure Charges Therapeutic Exercise 30 minutes: Yes
--- NOTE | 2025-03-17 15:21 | PT.ODAYNRPT ---
PT Outpatient Daily Note OP Daily Note Outpatient Physical Therapy Treatment Date: 03/17/25 Visit Reasons: Left shoulder surgery Subjective: Pt reports L shoulder is doing better flexibility continues to improve. Objective: Please see flow sheet for ther ex list. Assessment: Progressing strengthening as tolerated, continued with PROM in all planes. Plan: Continue with pOC. Length of Time (minutes) of Treatment: 30 Minutes Procedure Charges Therapeutic Exercise 30 minutes: Yes
--- NOTE | 2025-03-28 10:39 | PTNOTE_ITS ---
PT OP Progress/Discharge Note Date of Service: 03/28/25 Progress Note/DC Note Progress Note/Discharge Note: DC Note Patient Information Visit Reasons: Left shoulder surgery Service Continue Service or Discharge: Discharge Discharge Date: 03/28/25 Status Subjective: Better ROM since LILIAN with less pain usually. Pain still limits reaching into FF and abduction Objective: See F/S for therex MT: PROM into FF, abd and ER x5' L shoulder AROM: Strength: FF: 122 deg 4/5 Abd: 100 deg 4/5 ER: 85 deg Assessment: Pt has attended the eval and 08/11 Rx sessions with good progress with goals. Pt has improved AROM of L shoulder into FF to about 120 deg. PROM into ER has improved to 90 deg. Today she is having more pain into FF and abduction at end- range consistent with impingement-like ssx. If she weren't starting therapy this week for her neck she would've benefitted from additional therapy for the L shoulder. Plan: Pt will be starting therapy for her neck this week so she will D/C with HEP Procedure Charges Therapeutic Exercise 30 minutes: Yes
== END 2025-03-30 23:59 | disposition home or self-care (01) ==
LOC: CPTX 10:00
PROVIDERS: PCP Orthopaedic Surgery; Referring Provider Orthopaedic Surgery; Visit Provider Orthopaedic Surgery
DX: R53.1 Weakness (principal); M75.02 Adhesive capsulitis of left shoulder; Z98.890 Other specified postprocedural states
CPT/HCPCS: 97110

== ENCOUNTER 2025-04-20 09:00 | Outpatient (RCR) | payer MEDICAID, SELFPAY ==
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
--- NOTE | 2025-04-06 10:28 | PT.ODAYNRPT ---
PT Outpatient Daily Note OP Daily Note Outpatient Physical Therapy Treatment Date: 04/06/25 Visit Reasons: NECK PAIN Subjective: No change in arm pain or numbness lately. Pt continues to feel arm weakness with ADLs. Objective: Please see flow chart for list of ther ex performed Assessment: decrease c/s pain post traction. Cues to correct chin tuck OP to achieve the right form in sitting Plan: Continue with PT Length of Time (minutes) of Treatment: 30 Minutes Procedure Charges Traction Mechanical: Yes Therapeutic Exercise 15 minutes: Yes
--- NOTE | 2025-04-11 12:06 | PT.ODAYNRPT ---
PT Outpatient Daily Note OP Daily Note Outpatient Physical Therapy Treatment Date: 04/11/25 Visit Reasons: NECK PAIN Subjective: Pt notice slight decrease in neck pain after last session, however was left with headache a few days. Pt wants to try the traction again today. No change in overall left arm numbness with arm height usage. Objective: Please see flow chart for list of ther ex performed Assessment: continue to report of decrease neck pain post PT session, however, minimal changes with left arm numbness Plan: Continue with PT Length of Time (minutes) of Treatment: 30 Minutes Procedure Charges Traction Mechanical: Yes Therapeutic Exercise 15 minutes: Yes
--- NOTE | 2025-04-14 11:13 | PT.ODAYNRPT ---
PT Outpatient Daily Note OP Daily Note Outpatient Physical Therapy Treatment Date: 04/14/25 Visit Reasons: NECK PAIN Subjective: Pt's neck feels better but no change in left arm weakness/numbness. Pt follows up with surgeon today Objective: Please see flow chart for list of ther ex performed Assessment: decrease neck pain post PT session, however, no change in left arm numbness. Plan: Continue with PT Length of Time (minutes) of Treatment: 30 Minutes Procedure Charges Traction Mechanical: Yes Therapeutic Exercise 15 minutes: Yes
--- NOTE | 2025-04-17 12:55 | PT.ODAYNRPT ---
PT Outpatient Daily Note OP Daily Note Outpatient Physical Therapy Treatment Date: 04/17/25 Visit Reasons: NECK PAIN Subjective: Pt was doing her shoulder exercises yesterday and heard a pop in the left shoulder. Today Pt has difficulty moving her arm and it feels fatigue. Minimal changes with her left arm numbness and weakness. Pt follows up with pain management next week. Objective: Please see flow chart for list of ther ex performed Assessment: all exercises modified to not use left UE due to reported pain from yesterday while performing her shoulder exercises. Pt tolerate modified exercises, however, no change in arm or neck pain post session Plan: Conitnue with PT Length of Time (minutes) of Treatment: 30 Minutes Procedure Charges Therapeutic Exercise 30 minutes: Yes
--- NOTE | 2025-04-20 09:31 | PT.ODS1RPT ---
PT OP Progress/Discharge Note Date of Service: 04/20/25 Progress Note/DC Note Progress Note/Discharge Note: DC Note Patient Information Visit Reasons: NECK PAIN Medical Diagnosis: M54.12 Treatment Dx #1: Neck Pain Service Continue Service or Discharge: Discharge Discharge Date: 04/20/25 Status Subjective: Pt's left arm continues to feels numb and weak despite her neck pain has felt better. Pt still has limitation with overhead motions, lifting, chores, self care, cooking, cleaning, and performing recreational activities. Pt has a follow up appt with MD next week. Objective: C/S AROM: all motions are WNL Left Shoulder AROM Flexion: 140 deg Abduction: 120 deg External Rotation: 85 deg Internal Rotation: 70 deg Left Shoulder MMTs: grossly 3+/5 Right Shoulder AROM: all motions are WNL Right Shoulder MMTs: grossly 4-/5 Scapula MMTs: grossly 3+/5 Assessment: Pt demonstrate functional c/s mobility, however, no change in left arm numbness and weakness since starting physical therapy leading to difficulty with ADLs. Pt will no longer benefit from physical therapy due to minimal progress with left arm pain. Recommend c/s MRI to help rule in/out nature of pain. Pt was instructed on HEP last session and educated to continue exercises to maintain overall mobility. Pt performed all exercises safely, thank you for your referrals. Plan: D/C home with HEP and follow up with MD Recommend c/s MRI Procedure Charges Traction Mechanical: Yes Therapeutic Exercise 15 minutes: Yes
== END 2025-04-30 23:59 | disposition home or self-care (01) ==
LOC: CPTX 09:00
PROVIDERS: PCP Physical Medicine & Rehabilitation Pain Medicine; Referring Provider Physical Medicine & Rehabilitation Pain Medicine; Visit Provider Physical Medicine & Rehabilitation Pain Medicine
DX: M54.12 Radiculopathy, cervical region (principal); M79.602 Pain in left arm
CPT/HCPCS: 97012; 97110; 97162

== ENCOUNTER → 2025-06-12 | Outpatient (CLI) | payer MEDICAID, SELFPAY ==
--- NOTE | 2025-06-12 13:30 | XR_ITS ---
Examination: Breast ultrasound complete, bilateral Date and time of exam: June 12, 2025, 1349 hours INDICATIONS: Right breast pain 9 o'clock position beginning 8 months ago Technique: Real-time grayscale ultrasonographic imaging bilateral breasts, including all 4 quadrants as well as nipple retroareolar and axillary regions. Findings: Sonographic images right breast 9:00 nodule circumscribed 4 x 5 mm 9:00 nodule lobular margins 4 x 5 mm Sonographic images left breast No cystic or solid mass IMPRESSION: BI-RADS Category 3: Probably benign findings Recommend 1 additional 6-month right breast sonogram follow-up to document stability of nodules described above
== END | disposition home or self-care (01) ==
LOC: CDIM 13:18
PROVIDERS: PCP Registered Nurse Community Health; Referring Provider Registered Nurse Community Health; Visit Provider Registered Nurse Community Health
DX: N63.15 Unspecified lump in the right breast, overlapping quadrants (principal)
CPT/HCPCS: 76641

== ENCOUNTER → 2025-06-29 | Outpatient (CLI) | payer MEDICAID, SELFPAY ==
--- NOTE | 2025-06-29 08:00 | XR_ITS ---
MRI abdomen, without contrast. MRCP Date and time of exam: June 29, 2025, 0832 hours INDICATIONS: Right upper abdominal pain and bloating after eating 1 year, nausea and vomiting 1 month, cholecystectomy 20 years ago Technique: Multiple axial and coronal images of the abdomen have been obtained with the Siemens 1.5T MRI scanner. Images obtained included T1 weighted transverse images, T2-weighted transverse images, T2-weighted transverse images fat-suppressed, T2 weighted haste fat suppressed transverse images, T1 weighted images, in and out of phase images, T2-weighted coronal images, breath hold, T2 weighted haze coronal images as well as T2 weighted coronal thick slab images, MRCP. Findings: Hepatomegaly 19.7 cm Common hepatic duct 8 mm No common hepatic or common bile duct No pancreatic mass or peripancreatic edema Spleen is not enlarged No hydronephrosis Aorta normal size No ascites IMPRESSION: Hepatomegaly 19.7 cm Common hepatic duct 8 mm no common Common bile duct stones Negative for pancreatitis
== END | disposition home or self-care (01) ==
PROVIDERS: PCP Registered Nurse Community Health; Referring Provider Registered Nurse Community Health; Visit Provider Registered Nurse Community Health
DX: R16.0 Hepatomegaly, not elsewhere classified (principal); K80.50 Calculus of bile duct without cholangitis or cholecystitis without obstruction
CPT/HCPCS: 74181

== ENCOUNTER → 2025-07-03 | Outpatient (CLI) | payer MEDICAID, SELFPAY ==
--- NOTE | 2025-07-03 14:41 | XR_ITS ---
Examination: Retroperitoneal ultrasound, complete Technique: Multiple high resolution grayscale images of the retroperitoneum obtained, including kidneys and bladder. Exam date and time: July 03, 2025, 1502 hours INDICATIONS: Right flank pain and frequent urination beginning 1 year ago, worse the last 2 weeks FINDINGS: Right kidney 11.1 cm renal cortex 1.7 cm Left kidney 12.6 cm renal cortex 2.2 cm Moderate renal scar formation No bladder mass or bladder calculi Bladder prevoid volume 337.5 cc IMPRESSION: Moderate renal scar formation, no hydronephrosis
== END | disposition home or self-care (01) ==
PROVIDERS: PCP Registered Nurse Community Health; Referring Provider Registered Nurse Community Health; Visit Provider Registered Nurse Community Health
DX: N28.89 Other specified disorders of kidney and ureter (principal)
CPT/HCPCS: 76770